=== PATIENT | male | born 1935 | race Caucasian/White ===

== ENCOUNTER 2017-08-29 09:44 | Inpatient (IN) | payer MEDICARE, OTHER ==
[~2017-08-29] VITALS: Ht 182.9 cm; Wt 91.0 kg
[~2017-08-29 09:44] MED LIST: AMLO2.5T2 PO; ASPI-611 PO; ATOR20TA PO; DULO-31 PO; FERR134T2 PO; FLO0.4C PO; LISI-644 PO; METF500T PO; METO50TA7 PO; NIA500ERT PO; NITR0.4T48 SL; PHEN30SP5 NS; [UNRECOGNIZED DRUG - REMARK] PO
[2017-08-29] MEDS ORDERED: normal saline 1000ml 1,000 ML IV ONE ×2 (10:19→13:50)
[2017-08-29 10:46] LABS: PARTIAL THROMBOPLASTIN TIME 29 SECONDS (22-32); PROTHROMBIN TIME 10.6 SECONDS (9.0-12.0)
[2017-08-29 10:51] LABS: BASOPHILS % (AUTO) 0.3 % (0-1); EOSINOPHILS % (AUTO) 0 % (0-6); HEMATOCRIT 32.3 % (42.0-52.0); HEMOGLOBIN 11.1 g/dl (14.0-17.9); LYMPHOCYTES # (AUTO) 0.6 X10'3 (1.1-4.8); LYMPHOCYTES % (AUTO) 9.9 % (21-51); MEAN CORPUSCULAR HEMOGLOBIN 29.7 PG (27.0-31.0); MEAN CORPUSCULAR HGB CONC 34.4 % (33.0-36.5); MEAN CORPUSCULAR VOLUME 86.3 FL (78-98); MEAN PLATELET VOLUME 9.2 FL (7.4-10.4); MONOCYTES # (AUTO) 0.3 X10'3 (0-0.9); MONOCYTES % (AUTO) 4.2 % (2-12); NEUTROPHILS # (AUTO) 5.2 X10'3 (1.8-7.7); NEUTROPHILS % (AUTO) 85.6 % (42-75); PLATELET COUNT 107 X10'3 (140-440); RED BLOOD COUNT 3.74 X10'6 (4.70-6.10); RED CELL DISTRIBUTION WIDTH 15.1 % (11.5-14.5); WHITE BLOOD COUNT 6.1 X10'3 (4.5-11.0)
[2017-08-29 10:54] LABS: ALANINE AMINOTRANSFERASE 14 U/L (12-78); ALBUMIN/GLOBULIN RATIO 0.8 (1.1-1.5); ALKALINE PHOSPHATASE 88 IU/L (46-116); ANION GAP 15 (8-16); ASPARTATE AMINO TRANSFERASE 15 U/L (10-37); BILIRUBIN,TOTAL 0.6 MG/DL (0.1-1.0); BLOOD UREA NITROGEN 53 MG/DL (7-18); BUN/CREATININE RATIO 16.8 (5.4-32.0); CALCIUM 9.2 MG/DL (8.5-10.1); CHLORIDE 103 MMOL/L (99-107); CREATININE 3.16 MG/DL (0.60-1.10); GLUCOSE 165 MG/DL (70-104); POTASSIUM 3.4 MMOL/L (3.5-5.1); SODIUM 138 MMOL/L (135-145); TOTAL CARBON DIOXIDE 20.1 MMOL/L (24-32); TOTAL PROTEIN 6.6 G/DL (6.4-8.2); eGFR 19 ML/MIN
[2017-08-29 11:13] LABS: ACETAMINOPHEN < 2.0 UG/ML (10-30)
[2017-08-29 11:34] LABS: CLARITY,URINE CLEAR (Clear); COLOR,URINE YELLOW (Yellow); GLUCOSE, URINE NEGATIVE (Neg); KETONES,URINE 15 mg/dl (Neg); LEUKOCYTE ESTERASE ,URINE NEGATIVE (Neg); NITRITES, URINE NEGATIVE (Neg); OCCULT BLOOD,URINE SMALL (Neg); PH,URINE 5.5 (4.8-8.0); PROTEIN,URINE 30 mg/dl (Neg)
[2017-08-29 11:38] LABS: UA COLLECTION TYPE FOLEY CATH
[2017-08-29 11:48] LABS: URINE AMPHETAMINE SCREEN NEGATIVE (Neg); URINE BARBITUATE SCREEN NEGATIVE (Neg); URINE BENZODIAZEPINES SCREEN NEGATIVE (Neg); URINE CANNABINOID SCREEN NEGATIVE (Neg); URINE COCAINE SCREEN NEGATIVE (Neg); URINE METHADONE SCREEN NEGATIVE (Neg); URINE OPIATE SCREEN NEGATIVE (Neg); URINE PHENCYCLIDINE SCREEN NEGATIVE (Neg)
[2017-08-29 11:52] LABS: BACTERIA,URINE NONE SEEN /HPF (Neg); MUCUS STRANDS FEW /LPF (Neg); SQUAMOUS EPITHELIAL CELL,UR FEW /LPF (FEW); WBC,URINE 0-4 /HPF (0-4)
[2017-08-29] MEDS ORDERED: normal saline 1000ML IV soln IVB ONE (12:10)
[2017-08-29] MEDS ORDERED: glucagon, human recombinant 1mg kit SUBCUT PRN (13:35)
[2017-08-29] MEDS ORDERED: ondansetron/PF 4mg/2ml inj IV PRN (13:35)
[2017-08-29] MEDS ORDERED: magnesium hydroxide 30ml (MOM) UD suspension PO PRN (13:35)
[2017-08-29] MEDS ORDERED: MESSAGE TO PHARMACY PO ONE (13:35)
[2017-08-29] MEDS ORDERED: dextrose ORAL solution 15 GM/59 ML bottle PO PRN ×2 (13:35)
[2017-08-29] MEDS ORDERED: insulin Lispro (HumaLOG) vial - multi-dose SQ SCH (13:35)
[2017-08-29] MEDS ORDERED: acetaminophen 325mg tablet PO PRN (13:35)
[2017-08-29] MEDS ORDERED: dextrose 50%-water 50ml dispensing syringe IV PRN ×3 (13:35→23:35)
[2017-08-29 13:57] LABS: PHOSPHORUS 3.4 MG/DL (2.3-4.5)
[2017-08-29 13:59] LABS: HEMOGLOBIN A1C 5.3 % (4.5-6.2)
[2017-08-29] MEDS: normal saline 1000ml 1,000 ML IV SCH ×2 (14:16→21:55)
[2017-08-29 14:43] LABS: ANION GAP 17 (8-16); BLOOD UREA NITROGEN 52 MG/DL (7-18); BUN/CREATININE RATIO 17.4 (5.4-32.0); CALCIUM 8.8 MG/DL (8.5-10.1); CHLORIDE 105 MMOL/L (99-107); CREATININE 2.98 MG/DL (0.60-1.10); GLUCOSE 138 MG/DL (70-104); PHOSPHORUS 2.9 MG/DL (2.3-4.5); POTASSIUM 3.7 MMOL/L (3.5-5.1); SODIUM 140 MMOL/L (135-145); eGFR 20 ML/MIN
[2017-08-29 15:50] VITALS: BP 158/99
[2017-08-29] MEDS: piperacillin-tazo 2.25gm/50ml 50 ML IV SCH ×2 (16:32→23:56)
[2017-08-29] MEDS ORDERED: magnesium Cl slow-release 64mg tablet PO PRN (17:35)
[2017-08-29] MEDS ORDERED: magnesium 4gm in 100ml NS 100 ML IV PRN (17:35)
[2017-08-29] MEDS ORDERED: potassium Cl 20 mEq SR tablet PO PRN (17:35)
[2017-08-29] MEDS ORDERED: potassium Cl 40MEQ/NS 500ml 500 ML IV PRN ×2 (17:35)
[2017-08-29] MEDS ORDERED: magnesium 2GM in 50ml NS 50 ML IV PRN (17:35)
[2017-08-29 19:00] VITALS: BP 133/75
[2017-08-29 19:43] LABS: % IRON SATURATION 8 % (11-46); IRON 17 UG/DL (53-167); TOTAL IRON BINDING CAPACITY 222 UG/DL (259-388)
[2017-08-29] MEDS ORDERED: doxycycline inj 100 MG in normal saline 100ml IV soln 100 ML IV SCH (20:00)
[2017-08-29] MEDS: insulin glargine (Lantus) pen - multi-dose SQ SCH (21:00)
[2017-08-29] MEDS: sodium bicarbonate 650mg tablet PO SCH (21:02)
[2017-08-29] MEDS: heparin, porcine 5000 units/ml vial SQ SCH (21:02)
[2017-08-29] MEDS: nystatin 15 GM powder TP SCH (21:23)
[2017-08-29 23:00] VITALS: BP 134/64
[2017-08-29] MEDS ORDERED: haloperidol 5mg tablet PO PRN (23:35)
[2017-08-29] MEDS ORDERED: haloperidol lactate 5mg/ml inj IM PRN (23:35)
[2017-08-29] MEDS ORDERED: LORazepam 2 mg/ml vial IV PRN (23:35)
[2017-08-30 03:00] VITALS: BP 135/63
[2017-08-30 05:53] LABS: BASOPHILS % (AUTO) 0.3 % (0-1); EOSINOPHILS % (AUTO) 0.7 % (0-6); HEMATOCRIT 25.1 % (42.0-52.0); HEMOGLOBIN 8.5 g/dl (14.0-17.9); LYMPHOCYTES # (AUTO) 0.7 X10'3 (1.1-4.8); LYMPHOCYTES % (AUTO) 22.3 % (21-51); MEAN CORPUSCULAR HEMOGLOBIN 29.4 PG (27.0-31.0); MEAN CORPUSCULAR HGB CONC 34.1 % (33.0-36.5); MEAN CORPUSCULAR VOLUME 86.2 FL (78-98); MEAN PLATELET VOLUME 9.1 FL (7.4-10.4); MONOCYTES # (AUTO) 0.2 X10'3 (0-0.9); MONOCYTES % (AUTO) 4.8 % (2-12); NEUTROPHILS # (AUTO) 2.4 X10'3 (1.8-7.7); NEUTROPHILS % (AUTO) 71.9 % (42-75); PLATELET COUNT 61 X10'3 (140-440); RED BLOOD COUNT 2.91 X10'6 (4.70-6.10); RED CELL DISTRIBUTION WIDTH 14.8 % (11.5-14.5); WHITE BLOOD COUNT 3.3 X10'3 (4.5-11.0)
[2017-08-30 06:00] VITALS: BP 141/63
[2017-08-30 06:12] LABS: ANION GAP 14 (8-16); BLOOD UREA NITROGEN 45 MG/DL (7-18); BUN/CREATININE RATIO 19.8 (5.4-32.0); CALCIUM 7.8 MG/DL (8.5-10.1); CHLORIDE 108 MMOL/L (99-107); CREATININE 2.27 MG/DL (0.60-1.10); GLUCOSE 108 MG/DL (70-104); MAGNESIUM 1.6 MG/DL (1.5-2.4); PHOSPHORUS 2.8 MG/DL (2.3-4.5); SODIUM 139 MMOL/L (135-145); TOTAL CARBON DIOXIDE 16.8 MMOL/L (24-32); eGFR 28 ML/MIN
[2017-08-30] MEDS: potassium Cl 20 mEq SR tablet PO PRN ×3 (07:06→18:40)
[2017-08-30] MEDS ORDERED: potassium Cl 40MEQ/NS 500ml 500 ML IV PRN ×2 (07:35)
[2017-08-30] MEDS: duloxetine 30mg CAPSULE.DR PO SCH (07:57)
[2017-08-30] MEDS: atorvastatin 20mg tablet PO SCH (07:57)
[2017-08-30] MEDS: folic acid/vitamin B complex w/vitamin C 0.8mg tablet PO SCH (07:58)
[2017-08-30] MEDS: sodium bicarbonate 650mg tablet PO SCH ×3 (07:58→20:43)
[2017-08-30] MEDS: tamsulosin 0.4mg capsule PO SCH (07:58)
[2017-08-30] MEDS: ferrous sulfate 325mg tablet PO SCH (07:58)
[2017-08-30] MEDS: aspirin 81mg tablet.DR PO SCH (07:59)
[2017-08-30] MEDS ORDERED: [UNRECOGNIZED DRUG - REMARK] PO SCH (08:00)
[2017-08-30] MEDS ORDERED: non-formulary drug (Aspirin (Aspir 81) 1 TABLET) PO SCH (08:00)
[2017-08-30] MEDS ORDERED: non-formulary drug (Atorvastatin Calcium (Lipitor) 1 TABLET) PO SCH (08:00)
[2017-08-30] MEDS: heparin, porcine 5000 units/ml vial SQ SCH ×2 (08:00→20:00)
[2017-08-30] MEDS ORDERED: non-formulary drug (Metoprolol Succinate* (Toprol Xl*) 1 TAB) PO SCH (08:00)
[2017-08-30] MEDS ORDERED: folic acid inj. 2 MG, thiamine inj. 100 MG, MVI, adult No.4 with vit. K 10 ML in dextro... IV SCH ×4 (08:00)
[2017-08-30] MEDS ORDERED: FERROUS SULFATE 134 MG PO SCH (08:00)
[2017-08-30] MEDS: nystatin 15 GM powder TP SCH ×3 (08:01→21:54)
[2017-08-30] MEDS: piperacillin-tazo 2.25gm/50ml 50 ML IV SCH ×3 (08:01→23:49)
[2017-08-30] MEDS: amLODIPine 5mg tablet PO SCH (08:04)
[2017-08-30] MEDS: metoprolol succinate 25mg (24-HOUR) SR. Tablet PO SCH (08:04)
[2017-08-30] MEDS: normal saline 1000ml 1,000 ML IV SCH ×3 (08:09→21:54)
[2017-08-30] MEDS ORDERED: sodium ferric gluc complex inj 25 MG in normal saline 50ml IV soln 48 ML IV ONE (08:45)
[2017-08-30] MEDS ORDERED: NIT5P (10:04)
[2017-08-30] MEDS: sodium ferric gluc complex inj 125 MG in normal saline 100ml IV soln 100 ML IV SCH (10:20)
[2017-08-30 11:00] VITALS: BP 127/55
[2017-08-30 13:44] LABS: ALBUMIN 2.4 G/DL (3.4-5.0); ANION GAP 16 (8-16); BLOOD UREA NITROGEN 41 MG/DL (7-18); BUN/CREATININE RATIO 17.4 (5.4-32.0); CALCIUM 8.2 MG/DL (8.5-10.1); CHLORIDE 104 MMOL/L (99-107); CREATININE 2.36 MG/DL (0.60-1.10); GLUCOSE 135 MG/DL (70-104); SODIUM 136 MMOL/L (135-145); TOTAL CARBON DIOXIDE 16.4 MMOL/L (24-32); eGFR 27 ML/MIN
[2017-08-30 13:47] LABS: POTASSIUM 2.9 MMOL/L (3.5-5.1)
[2017-08-30] MEDS ORDERED: potassium Cl 20 mEq SR tablet PO STA (14:19)
[2017-08-30] MEDS: doxycycline hyclate 100mg tablet.DR PO SCH ×2 (14:27→17:30)
[2017-08-30 15:00] VITALS: BP 129/64
[2017-08-30 19:00] VITALS: BP 115/50
[2017-08-30 19:42] LABS: ALBUMIN 2.1 G/DL (3.4-5.0); ANION GAP 14 (8-16); BLOOD UREA NITROGEN 37 MG/DL (7-18); BUN/CREATININE RATIO 17.7 (5.4-32.0); CALCIUM 7.7 MG/DL (8.5-10.1); CHLORIDE 105 MMOL/L (99-107); CREATININE 2.09 MG/DL (0.60-1.10); GLUCOSE 129 MG/DL (70-104); POTASSIUM 3.3 MMOL/L (3.5-5.1); SODIUM 136 MMOL/L (135-145); TOTAL CARBON DIOXIDE 17.3 MMOL/L (24-32); eGFR 31 ML/MIN
[2017-08-30] MEDS: lactobacillus rhamnosus 10,000 MMU CELLS/CAPSULE PO SCH (20:43)
[2017-08-30] MEDS: insulin glargine (Lantus) pen - multi-dose SQ SCH (21:00)
[2017-08-30 23:00] VITALS: BP 96/50
[2017-08-31 00:30] VITALS: BP 133/75
[2017-08-31 05:49] LABS: BASOPHILS % (AUTO) 0.6 % (0-1); EOSINOPHILS # (AUTO) 0.1 X10'3 (0-0.9); HEMOGLOBIN 8.9 g/dl (14.0-17.9); LYMPHOCYTES # (AUTO) 0.8 X10'3 (1.1-4.8); LYMPHOCYTES % (AUTO) 19.3 % (21-51); MEAN CORPUSCULAR HEMOGLOBIN 29.6 PG (27.0-31.0); MEAN CORPUSCULAR HGB CONC 34.1 % (33.0-36.5); MEAN CORPUSCULAR VOLUME 86.6 FL (78-98); MEAN PLATELET VOLUME 9.3 FL (7.4-10.4); MONOCYTES # (AUTO) 0.2 X10'3 (0-0.9); MONOCYTES % (AUTO) 3.7 % (2-12); NEUTROPHILS # (AUTO) 3.3 X10'3 (1.8-7.7); NEUTROPHILS % (AUTO) 74.4 % (42-75); PLATELET COUNT 70 X10'3 (140-440); WHITE BLOOD COUNT 4.4 X10'3 (4.5-11.0)
[2017-08-31 06:20] LABS: ANION GAP 9 (8-16); BLOOD UREA NITROGEN 33 MG/DL (7-18); BUN/CREATININE RATIO 17.6 (5.4-32.0); CALCIUM 7.7 MG/DL (8.5-10.1); CHLORIDE 105 MMOL/L (99-107); CREATININE 1.87 MG/DL (0.60-1.10); GLUCOSE 117 MG/DL (70-104); MAGNESIUM 1.4 MG/DL (1.5-2.4); PHOSPHORUS 1.6 MG/DL (2.3-4.5); POTASSIUM 4.1 MMOL/L (3.5-5.1); SODIUM 134 MMOL/L (135-145); TOTAL CARBON DIOXIDE 19.7 MMOL/L (24-32); eGFR 35 ML/MIN
[2017-08-31 07:00] VITALS: BP 136/55
[2017-08-31] MEDS: heparin, porcine 5000 units/ml vial SQ SCH ×2 (08:00→21:39)
[2017-08-31] MEDS: normal saline 1000ml 1,000 ML IV SCH (08:08)
[2017-08-31] MEDS: folic acid 1mg tablet PO SCH (08:08)
[2017-08-31] MEDS: multivitamins, therapeutics tablet PO SCH (08:08)
[2017-08-31] MEDS: lactobacillus rhamnosus 10,000 MMU CELLS/CAPSULE PO SCH ×2 (08:08→21:38)
[2017-08-31] MEDS: amLODIPine 5mg tablet PO SCH (08:09)
[2017-08-31] MEDS: tamsulosin 0.4mg capsule PO SCH (08:09)
[2017-08-31] MEDS: duloxetine 30mg CAPSULE.DR PO SCH (08:09)
[2017-08-31] MEDS: ferrous sulfate 325mg tablet PO SCH (08:09)
[2017-08-31] MEDS: doxycycline hyclate 100mg tablet.DR PO SCH ×2 (08:09→16:36)
[2017-08-31] MEDS: metoprolol succinate 25mg (24-HOUR) SR. Tablet PO SCH (08:09)
[2017-08-31] MEDS: atorvastatin 20mg tablet PO SCH (08:09)
[2017-08-31] MEDS: aspirin 81mg tablet.DR PO SCH (08:09)
[2017-08-31] MEDS: thiamine 100mg tablet PO SCH (08:09)
[2017-08-31] MEDS: piperacillin-tazo 2.25gm/50ml 50 ML IV SCH ×2 (08:10→16:36)
[2017-08-31] MEDS: nystatin 15 GM powder TP SCH ×3 (08:10→21:38)
[2017-08-31] MEDS: folic acid/vitamin B complex w/vitamin C 0.8mg tablet PO SCH (08:11)
[2017-08-31] MEDS ORDERED: magnesium 2GM in 50ml NS 50 ML IV ONE (08:15)
[2017-08-31] MEDS ORDERED: sodium phosphate inj. 15 MMOL in dextrose 5%-water 145 ML IV ONE (08:15)
[2017-08-31] MEDS: sodium bicarbonate 650mg tablet PO SCH ×3 (08:32→21:38)
[2017-08-31] MEDS: sodium ferric gluc complex inj 125 MG in normal saline 100ml IV soln 100 ML IV SCH (10:12)
[2017-08-31 11:19] VITALS: BP 109/49
[2017-08-31 19:00] VITALS: BP 118/65
[2017-08-31] MEDS: insulin glargine (Lantus) pen - multi-dose SQ SCH (21:00)
[2017-08-31] MEDS ORDERED: LORazepam 2 mg/ml vial IV PRN (23:35)
[2017-08-31] MEDS ORDERED: LORazepam 1 MG tablet PO PRN (23:35)
[2017-09-01] VITALS: BP_SYST 127; BP_SYST 137; BP_DIAS 62; BP_DIAS 64
[2017-09-01] MEDS: piperacillin-tazo 2.25gm/50ml 50 ML IV SCH ×2 (00:45→08:29)
[2017-09-01] MEDS: normal saline 1000ml 1,000 ML IV SCH ×3 (01:35→15:24)
[2017-09-01 04:39] VITALS: BP 97/55
[2017-09-01 06:06] LABS: BASOPHILS % (AUTO) 0.7 % (0-1); EOSINOPHILS # (AUTO) 0.1 X10'3 (0-0.9); EOSINOPHILS % (AUTO) 2.8 % (0-6); HEMOGLOBIN 8.7 g/dl (14.0-17.9); LYMPHOCYTES # (AUTO) 0.9 X10'3 (1.1-4.8); MEAN CORPUSCULAR HEMOGLOBIN 29.4 PG (27.0-31.0); MEAN CORPUSCULAR HGB CONC 33.5 % (33.0-36.5); MEAN CORPUSCULAR VOLUME 87.7 FL (78-98); MEAN PLATELET VOLUME 9.1 FL (7.4-10.4); MONOCYTES # (AUTO) 0.2 X10'3 (0-0.9); MONOCYTES % (AUTO) 4.6 % (2-12); NEUTROPHILS # (AUTO) 2.3 X10'3 (1.8-7.7); NEUTROPHILS % (AUTO) 65.9 % (42-75); PLATELET COUNT 72 X10'3 (140-440); RED BLOOD COUNT 2.97 X10'6 (4.70-6.10); RED CELL DISTRIBUTION WIDTH 14.9 % (11.5-14.5); WHITE BLOOD COUNT 3.5 X10'3 (4.5-11.0)
[2017-09-01 06:16] LABS: ANION GAP 13 (8-16); BLOOD UREA NITROGEN 23 MG/DL (7-18); BUN/CREATININE RATIO 15.1 (5.4-32.0); CALCIUM 7.7 MG/DL (8.5-10.1); CHLORIDE 102 MMOL/L (99-107); CREATININE 1.52 MG/DL (0.60-1.10); GLUCOSE 117 MG/DL (70-104); MAGNESIUM 1.4 MG/DL (1.5-2.4); PHOSPHORUS 2.6 MG/DL (2.3-4.5); POTASSIUM 3.8 MMOL/L (3.5-5.1); SODIUM 134 MMOL/L (135-145); TOTAL CARBON DIOXIDE 19.2 MMOL/L (24-32); eGFR 44 ML/MIN
[2017-09-01 07:08] VITALS: BP 149/63
[2017-09-01] MEDS: heparin, porcine 5000 units/ml vial SQ SCH ×2 (08:00→21:21)
[2017-09-01] MEDS: thiamine 100mg tablet PO SCH (08:29)
[2017-09-01] MEDS: doxycycline hyclate 100mg tablet.DR PO SCH ×2 (08:29→17:54)
[2017-09-01] MEDS: lactobacillus rhamnosus 10,000 MMU CELLS/CAPSULE PO SCH ×2 (08:29→21:19)
[2017-09-01] MEDS: folic acid 1mg tablet PO SCH (08:30)
[2017-09-01] MEDS: amLODIPine 5mg tablet PO SCH (08:30)
[2017-09-01] MEDS: aspirin 81mg tablet.DR PO SCH (08:30)
[2017-09-01] MEDS: metoprolol succinate 25mg (24-HOUR) SR. Tablet PO SCH (08:30)
[2017-09-01] MEDS: ferrous sulfate 325mg tablet PO SCH (08:30)
[2017-09-01] MEDS: folic acid/vitamin B complex w/vitamin C 0.8mg tablet PO SCH (08:30)
[2017-09-01] MEDS: tamsulosin 0.4mg capsule PO SCH (08:30)
[2017-09-01] MEDS: multivitamins, therapeutics tablet PO SCH (08:30)
[2017-09-01] MEDS: sodium bicarbonate 650mg tablet PO SCH ×4 (08:30→21:21)
[2017-09-01] MEDS: atorvastatin 20mg tablet PO SCH (08:30)
[2017-09-01] MEDS: duloxetine 30mg CAPSULE.DR PO SCH (08:31)
[2017-09-01] MEDS: nystatin 15 GM powder TP SCH ×3 (08:40→21:21)
[2017-09-01 10:01] VITALS: BP_SYST 101; BP_SYST 130; BP_SYST 91; BP_DIAS 33; BP_DIAS 43; BP_DIAS 67
[2017-09-01] MEDS: sodium ferric gluc complex inj 125 MG in normal saline 100ml IV soln 100 ML IV SCH (10:08)
[2017-09-01 12:36] VITALS: BP 136/79
[2017-09-01 19:00] VITALS: BP 139/73
[2017-09-01] MEDS: insulin glargine (Lantus) pen - multi-dose SQ SCH (21:00)
[2017-09-02] VITALS: BP 127/64
[2017-09-02] MEDS: normal saline 1000ml 1,000 ML IV SCH ×2 (02:55→17:29)
[2017-09-02 05:42] LABS: BASOPHILS % (AUTO) 0.5 % (0-1); EOSINOPHILS # (AUTO) 0.1 X10'3 (0-0.9); HEMATOCRIT 24.8 % (42.0-52.0); HEMOGLOBIN 8.6 g/dl (14.0-17.9); LYMPHOCYTES % (AUTO) 26.1 % (21-51); MEAN CORPUSCULAR HEMOGLOBIN 29.4 PG (27.0-31.0); MEAN CORPUSCULAR HGB CONC 34.5 % (33.0-36.5); MEAN CORPUSCULAR VOLUME 85.4 FL (78-98); MEAN PLATELET VOLUME 8.6 FL (7.4-10.4); MONOCYTES # (AUTO) 0.3 X10'3 (0-0.9); MONOCYTES % (AUTO) 7.6 % (2-12); NEUTROPHILS # (AUTO) 2.5 X10'3 (1.8-7.7); NEUTROPHILS % (AUTO) 62.8 % (42-75); PLATELET COUNT 79 X10'3 (140-440); RED BLOOD COUNT 2.91 X10'6 (4.70-6.10); RED CELL DISTRIBUTION WIDTH 15.1 % (11.5-14.5)
[2017-09-02 05:51] LABS: ALANINE AMINOTRANSFERASE 14 U/L (12-78); ALBUMIN/GLOBULIN RATIO 0.7 (1.1-1.5); ALKALINE PHOSPHATASE 71 IU/L (46-116); ANION GAP 10 (8-16); ASPARTATE AMINO TRANSFERASE 14 U/L (10-37); BILIRUBIN,TOTAL 0.4 MG/DL (0.1-1.0); BLOOD UREA NITROGEN 19 MG/DL (7-18); BUN/CREATININE RATIO 14.7 (5.4-32.0); CALCIUM 7.7 MG/DL (8.5-10.1); CHLORIDE 101 MMOL/L (99-107); CREATININE 1.29 MG/DL (0.60-1.10); GLUCOSE 98 MG/DL (70-104); MAGNESIUM 1.2 MG/DL (1.5-2.4); PHOSPHORUS 2.3 MG/DL (2.3-4.5); POTASSIUM 3.2 MMOL/L (3.5-5.1); SODIUM 130 MMOL/L (135-145); TOTAL CARBON DIOXIDE 19.5 MMOL/L (24-32); TOTAL PROTEIN 4.9 G/DL (6.4-8.2); eGFR 53 ML/MIN
[2017-09-02 08:00] VITALS: BP_SYST 131; BP_SYST 132; BP_SYST 136; BP_SYST 142; BP_DIAS 62; BP_DIAS 67; BP_DIAS 73
[2017-09-02] MEDS: heparin, porcine 5000 units/ml vial SQ SCH ×2 (08:00→20:00)
[2017-09-02] MEDS: sodium bicarbonate 650mg tablet PO SCH ×3 (08:56→21:47)
[2017-09-02] MEDS: amLODIPine 5mg tablet PO SCH (08:56)
[2017-09-02] MEDS: folic acid/vitamin B complex w/vitamin C 0.8mg tablet PO SCH (08:56)
[2017-09-02] MEDS: aspirin 81mg tablet.DR PO SCH (08:57)
[2017-09-02] MEDS: atorvastatin 20mg tablet PO SCH (08:58)
[2017-09-02] MEDS: folic acid 1mg tablet PO SCH (08:59)
[2017-09-02] MEDS: metoprolol succinate 25mg (24-HOUR) SR. Tablet PO SCH (08:59)
[2017-09-02] MEDS: multivitamins, therapeutics tablet PO SCH (08:59)
[2017-09-02] MEDS: lactobacillus rhamnosus 10,000 MMU CELLS/CAPSULE PO SCH ×2 (08:59→21:47)
[2017-09-02] MEDS: ferrous sulfate 325mg tablet PO SCH (08:59)
[2017-09-02] MEDS: tamsulosin 0.4mg capsule PO SCH (09:08)
[2017-09-02] MEDS: thiamine 100mg tablet PO SCH (09:08)
[2017-09-02] MEDS: duloxetine 30mg CAPSULE.DR PO SCH (09:08)
[2017-09-02] MEDS: nystatin 15 GM powder TP SCH ×3 (09:08→21:48)
[2017-09-02] MEDS: sodium ferric gluc complex inj 125 MG in normal saline 100ml IV soln 100 ML IV SCH (09:14)
[2017-09-02] MEDS: doxycycline hyclate 100mg tablet.DR PO SCH ×2 (09:14→17:29)
[2017-09-02 11:00] VITALS: BP 117/66
[2017-09-02] MEDS ORDERED: magnesium Cl slow-release 64mg tablet PO PRN (11:10)
[2017-09-02] MEDS ORDERED: magnesium 4gm in 100ml NS 100 ML IV PRN (11:10)
[2017-09-02] MEDS ORDERED: magnesium 2GM in 50ml NS 50 ML IV PRN (11:10)
[2017-09-02] MEDS ORDERED: potassium Cl 40MEQ/NS 500ml 500 ML IV PRN ×2 (11:10)
[2017-09-02] MEDS ORDERED: potassium Cl 20 mEq SR tablet PO PRN (11:10)
[2017-09-02] MEDS: potassium Cl 20 mEq SR tablet PO PRN ×3 (12:00→21:47)
[2017-09-02 18:00] VITALS: BP 135/70
[2017-09-02 20:00] VITALS: BP_SYST 135; BP_SYST 146; BP_DIAS 70
[2017-09-02] MEDS: insulin glargine (Lantus) pen - multi-dose SQ SCH (21:00)
[2017-09-02] MEDS ORDERED: LORazepam 1 MG tablet PO PRN (23:35)
[2017-09-02] MEDS ORDERED: LORazepam 2 mg/ml vial IV PRN (23:35)
[2017-09-03] VITALS (7 sets, daily range): BP systolic 73–135; BP diastolic 40–74
[2017-09-03 06:09] LABS: BASOPHILS % (AUTO) 0.4 % (0-1); EOSINOPHILS # (AUTO) 0.1 X10'3 (0-0.9); EOSINOPHILS % (AUTO) 2.7 % (0-6); LYMPHOCYTES # (AUTO) 1.1 X10'3 (1.1-4.8); LYMPHOCYTES % (AUTO) 26.4 % (21-51); MEAN CORPUSCULAR HEMOGLOBIN 29.4 PG (27.0-31.0); MEAN CORPUSCULAR HGB CONC 34.5 % (33.0-36.5); MEAN CORPUSCULAR VOLUME 85.3 FL (78-98); MONOCYTES # (AUTO) 0.4 X10'3 (0-0.9); MONOCYTES % (AUTO) 8.6 % (2-12); NEUTROPHILS # (AUTO) 2.6 X10'3 (1.8-7.7); NEUTROPHILS % (AUTO) 61.9 % (42-75); PLATELET COUNT 87 X10'3 (140-440); RED BLOOD COUNT 3.05 X10'6 (4.70-6.10); RED CELL DISTRIBUTION WIDTH 14.6 % (11.5-14.5); WHITE BLOOD COUNT 4.2 X10'3 (4.5-11.0)
[2017-09-03 06:31] LABS: ALANINE AMINOTRANSFERASE 20 U/L (12-78); ALBUMIN 2.1 G/DL (3.4-5.0); ALBUMIN/GLOBULIN RATIO 0.7 (1.1-1.5); ALKALINE PHOSPHATASE 71 IU/L (46-116); ANION GAP 8 (8-16); ASPARTATE AMINO TRANSFERASE 23 U/L (10-37); BILIRUBIN,TOTAL 0.4 MG/DL (0.1-1.0); BLOOD UREA NITROGEN 19 MG/DL (7-18); BUN/CREATININE RATIO 14.7 (5.4-32.0); CALCIUM 7.7 MG/DL (8.5-10.1); CHLORIDE 102 MMOL/L (99-107); CREATININE 1.29 MG/DL (0.60-1.10); GLUCOSE 97 MG/DL (70-104); PHOSPHORUS 2.2 MG/DL (2.3-4.5); POTASSIUM 3.9 MMOL/L (3.5-5.1); SODIUM 130 MMOL/L (135-145); TOTAL CARBON DIOXIDE 19.9 MMOL/L (24-32); eGFR 53 ML/MIN
[2017-09-03] MEDS: folic acid 1mg tablet PO SCH (07:17)
[2017-09-03] MEDS: lactobacillus rhamnosus 10,000 MMU CELLS/CAPSULE PO SCH ×2 (07:17→20:33)
[2017-09-03] MEDS: atorvastatin 20mg tablet PO SCH (07:17)
[2017-09-03] MEDS: aspirin 81mg tablet.DR PO SCH (07:18)
[2017-09-03] MEDS: amLODIPine 5mg tablet PO SCH (07:18)
[2017-09-03] MEDS: ferrous sulfate 325mg tablet PO SCH (07:18)
[2017-09-03] MEDS: metoprolol succinate 25mg (24-HOUR) SR. Tablet PO SCH (07:19)
[2017-09-03] MEDS: multivitamins, therapeutics tablet PO SCH (07:19)
[2017-09-03] MEDS: duloxetine 30mg CAPSULE.DR PO SCH (07:19)
[2017-09-03] MEDS: doxycycline hyclate 100mg tablet.DR PO SCH ×2 (07:20→17:26)
[2017-09-03] MEDS: tamsulosin 0.4mg capsule PO SCH (07:20)
[2017-09-03] MEDS: thiamine 100mg tablet PO SCH (07:20)
[2017-09-03] MEDS: folic acid/vitamin B complex w/vitamin C 0.8mg tablet PO SCH (07:20)
[2017-09-03] MEDS: sodium bicarbonate 650mg tablet PO SCH ×3 (07:20→20:33)
[2017-09-03] MEDS: heparin, porcine 5000 units/ml vial SQ SCH ×2 (07:33→20:00)
[2017-09-03] MEDS: nystatin 15 GM powder TP SCH ×3 (09:28→20:33)
[2017-09-03] MEDS: sodium ferric gluc complex inj 125 MG in normal saline 100ml IV soln 100 ML IV SCH (10:42)
[2017-09-03] MEDS: normal saline 1000ml 1,000 ML IV SCH ×3 (10:43→20:57)
[2017-09-03] MEDS ORDERED: potassium Cl 20 mEq SR tablet PO ONE (12:25)
[2017-09-03] MEDS: insulin glargine (Lantus) pen - multi-dose SQ SCH (21:00)
[2017-09-04] VITALS: BP 128/65
[2017-09-04 05:32] LABS: BASOPHILS % (AUTO) 0.5 % (0-1); EOSINOPHILS # (AUTO) 0.1 X10'3 (0-0.9); EOSINOPHILS % (AUTO) 2.8 % (0-6); HEMATOCRIT 25.8 % (42.0-52.0); LYMPHOCYTES # (AUTO) 1.2 X10'3 (1.1-4.8); LYMPHOCYTES % (AUTO) 25.8 % (21-51); MEAN CORPUSCULAR HEMOGLOBIN 29.8 PG (27.0-31.0); MEAN CORPUSCULAR HGB CONC 34.9 % (33.0-36.5); MEAN CORPUSCULAR VOLUME 85.5 FL (78-98); MEAN PLATELET VOLUME 8.4 FL (7.4-10.4); MONOCYTES # (AUTO) 0.5 X10'3 (0-0.9); NEUTROPHILS # (AUTO) 2.7 X10'3 (1.8-7.7); NEUTROPHILS % (AUTO) 60.9 % (42-75); PLATELET COUNT 99 X10'3 (140-440); RED BLOOD COUNT 3.02 X10'6 (4.70-6.10); RED CELL DISTRIBUTION WIDTH 15.2 % (11.5-14.5); WHITE BLOOD COUNT 4.5 X10'3 (4.5-11.0)
[2017-09-04 05:56] LABS: ALANINE AMINOTRANSFERASE 24 U/L (12-78); ALBUMIN 2.3 G/DL (3.4-5.0); ALBUMIN/GLOBULIN RATIO 0.8 (1.1-1.5); ALKALINE PHOSPHATASE 79 IU/L (46-116); ANION GAP 9 (8-16); ASPARTATE AMINO TRANSFERASE 25 U/L (10-37); BILIRUBIN,TOTAL 0.4 MG/DL (0.1-1.0); BLOOD UREA NITROGEN 21 MG/DL (7-18); BUN/CREATININE RATIO 16.8 (5.4-32.0); CALCIUM 8.1 MG/DL (8.5-10.1); CHLORIDE 100 MMOL/L (99-107); CREATININE 1.25 MG/DL (0.60-1.10); GLUCOSE 102 MG/DL (70-104); MAGNESIUM 2.1 MG/DL (1.5-2.4); PHOSPHORUS 2.2 MG/DL (2.3-4.5); POTASSIUM 3.8 MMOL/L (3.5-5.1); SODIUM 128 MMOL/L (135-145); TOTAL CARBON DIOXIDE 19.4 MMOL/L (24-32); TOTAL PROTEIN 5.3 G/DL (6.4-8.2); eGFR 55 ML/MIN
[2017-09-04 07:00] VITALS: BP 152/67
[2017-09-04 08:00] VITALS: BP_SYST 107; BP_SYST 125; BP_SYST 86; BP_DIAS 54; BP_DIAS 63; BP_DIAS 65
[2017-09-04] MEDS: heparin, porcine 5000 units/ml vial SQ SCH ×2 (08:00→19:46)
[2017-09-04] MEDS: nystatin 15 GM powder TP SCH ×3 (08:39→20:41)
[2017-09-04] MEDS: multivitamins, therapeutics tablet PO SCH (08:39)
[2017-09-04] MEDS: duloxetine 30mg CAPSULE.DR PO SCH (08:39)
[2017-09-04] MEDS: aspirin 81mg tablet.DR PO SCH (08:39)
[2017-09-04] MEDS: tamsulosin 0.4mg capsule PO SCH (08:39)
[2017-09-04] MEDS: folic acid 1mg tablet PO SCH (08:39)
[2017-09-04] MEDS: thiamine 100mg tablet PO SCH (08:39)
[2017-09-04] MEDS: atorvastatin 20mg tablet PO SCH (08:39)
[2017-09-04] MEDS: lactobacillus rhamnosus 10,000 MMU CELLS/CAPSULE PO SCH ×2 (08:39→19:49)
[2017-09-04] MEDS: sodium bicarbonate 650mg tablet PO SCH ×3 (08:40→20:39)
[2017-09-04] MEDS: folic acid/vitamin B complex w/vitamin C 0.8mg tablet PO SCH (08:40)
[2017-09-04] MEDS: doxycycline hyclate 100mg tablet.DR PO SCH ×2 (08:40→17:30)
[2017-09-04] MEDS: ferrous sulfate 325mg tablet PO SCH (08:40)
[2017-09-04] MEDS: metoprolol succinate 25mg (24-HOUR) SR. Tablet PO SCH (08:40)
[2017-09-04] MEDS: sodium ferric gluc complex inj 125 MG in normal saline 100ml IV soln 100 ML IV SCH (08:49)
[2017-09-04 12:00] VITALS: BP 154/76
[2017-09-04] MEDS: fludrocortisone acetate 0.1mg tablet PO SCH (12:28)
[2017-09-04] MEDS: sodium chloride 1gm tablet PO SCH ×3 (12:28→20:39)
[2017-09-04 19:00] VITALS: BP 136/63
[2017-09-04] MEDS: insulin glargine (Lantus) pen - multi-dose SQ SCH (20:39)
[2017-09-05] VITALS: BP 153/68
[2017-09-05 04:48] LABS: BASOPHILS % (AUTO) 0.4 % (0-1); EOSINOPHILS # (AUTO) 0.2 X10'3 (0-0.9); EOSINOPHILS % (AUTO) 4.2 % (0-6); HEMATOCRIT 27.8 % (42.0-52.0); HEMOGLOBIN 9.4 g/dl (14.0-17.9); LYMPHOCYTES # (AUTO) 0.9 X10'3 (1.1-4.8); LYMPHOCYTES % (AUTO) 20.6 % (21-51); MEAN CORPUSCULAR HEMOGLOBIN 29.6 PG (27.0-31.0); MEAN CORPUSCULAR VOLUME 87.1 FL (78-98); MEAN PLATELET VOLUME 8.5 FL (7.4-10.4); MONOCYTES # (AUTO) 0.4 X10'3 (0-0.9); MONOCYTES % (AUTO) 9.2 % (2-12); NEUTROPHILS # (AUTO) 2.8 X10'3 (1.8-7.7); NEUTROPHILS % (AUTO) 65.6 % (42-75); PLATELET COUNT 128 X10'3 (140-440); RED BLOOD COUNT 3.19 X10'6 (4.70-6.10); RED CELL DISTRIBUTION WIDTH 15.3 % (11.5-14.5); WHITE BLOOD COUNT 4.2 X10'3 (4.5-11.0)
[2017-09-05 05:42] LABS: ALBUMIN 2.5 G/DL (3.4-5.0); ALBUMIN/GLOBULIN RATIO 0.8 (1.1-1.5); ANION GAP 14 (8-16); ASPARTATE AMINO TRANSFERASE 24 U/L (10-37); BILIRUBIN,TOTAL 0.4 MG/DL (0.1-1.0); BLOOD UREA NITROGEN 20 MG/DL (7-18); BUN/CREATININE RATIO 16.1 (5.4-32.0); CALCIUM 8.6 MG/DL (8.5-10.1); CHLORIDE 100 MMOL/L (99-107); CREATININE 1.24 MG/DL (0.60-1.10); GLUCOSE 107 MG/DL (70-104); MAGNESIUM 1.8 MG/DL (1.5-2.4); PHOSPHORUS 3.1 MG/DL (2.3-4.5); POTASSIUM 3.2 MMOL/L (3.5-5.1); SODIUM 133 MMOL/L (135-145); TOTAL PROTEIN 5.8 G/DL (6.4-8.2); eGFR 56 ML/MIN
[2017-09-05 05:43] LABS: ALANINE AMINOTRANSFERASE 29 U/L (12-78); ALKALINE PHOSPHATASE 79 IU/L (46-116)
[2017-09-05 07:00] VITALS: BP 151/70
[2017-09-05] MEDS: tamsulosin 0.4mg capsule PO SCH (07:12)
[2017-09-05] MEDS: ferrous sulfate 325mg tablet PO SCH (07:12)
[2017-09-05] MEDS: multivitamins, therapeutics tablet PO SCH (07:12)
[2017-09-05] MEDS: sodium bicarbonate 650mg tablet PO SCH ×3 (07:12→20:40)
[2017-09-05] MEDS: atorvastatin 20mg tablet PO SCH (07:13)
[2017-09-05] MEDS: folic acid/vitamin B complex w/vitamin C 0.8mg tablet PO SCH (07:13)
[2017-09-05] MEDS: doxycycline hyclate 100mg tablet.DR PO SCH ×2 (07:13→17:31)
[2017-09-05] MEDS: duloxetine 30mg CAPSULE.DR PO SCH (07:13)
[2017-09-05] MEDS: lactobacillus rhamnosus 10,000 MMU CELLS/CAPSULE PO SCH ×2 (07:13→20:39)
[2017-09-05] MEDS: aspirin 81mg tablet.DR PO SCH (07:13)
[2017-09-05] MEDS: thiamine 100mg tablet PO SCH (07:13)
[2017-09-05] MEDS: sodium chloride 1gm tablet PO SCH (07:13)
[2017-09-05] MEDS: heparin, porcine 5000 units/ml vial SQ SCH ×2 (07:14→20:40)
[2017-09-05] MEDS: folic acid 1mg tablet PO SCH (07:14)
[2017-09-05] MEDS: metoprolol succinate 25mg (24-HOUR) SR. Tablet PO SCH (07:14)
[2017-09-05] MEDS: nystatin 15 GM powder TP SCH ×3 (07:15→20:59)
[2017-09-05] MEDS: fludrocortisone acetate 0.1mg tablet PO SCH (07:21)
[2017-09-05] MEDS: potassium Cl 20 mEq SR tablet PO PRN ×3 (08:21→17:31)
[2017-09-05] MEDS: sodium ferric gluc complex inj 125 MG in normal saline 100ml IV soln 100 ML IV SCH (09:08)
[2017-09-05 11:42] VITALS: BP 125/61
[2017-09-05] MEDS ORDERED: potassium Cl 40MEQ/NS 500ml 500 ML IV PRN ×2 (12:25)
[2017-09-05] MEDS ORDERED: magnesium 2GM in 50ml NS 50 ML IV PRN (12:25)
[2017-09-05] MEDS ORDERED: potassium Cl 20 mEq SR tablet PO PRN (12:25)
[2017-09-05] MEDS ORDERED: magnesium 4gm in 100ml NS 100 ML IV PRN (12:25)
[2017-09-05] MEDS ORDERED: magnesium Cl slow-release 64mg tablet PO PRN (12:25)
[2017-09-05 19:00] VITALS: BP 151/72
[2017-09-05] MEDS: insulin glargine (Lantus) pen - multi-dose SQ SCH (21:00)
[2017-09-06] VITALS: BP 151/72
[2017-09-06 04:49] LABS: BASOPHILS # (AUTO) 0.1 X10'3 (0-0.2); BASOPHILS % (AUTO) 1.6 % (0-1); EOSINOPHILS # (AUTO) 0.1 X10'3 (0-0.9); EOSINOPHILS % (AUTO) 3.4 % (0-6); HEMATOCRIT 27.8 % (42.0-52.0); HEMOGLOBIN 9.6 g/dl (14.0-17.9); LYMPHOCYTES # (AUTO) 1.2 X10'3 (1.1-4.8); LYMPHOCYTES % (AUTO) 27.6 % (21-51); MEAN CORPUSCULAR HEMOGLOBIN 30.1 PG (27.0-31.0); MEAN CORPUSCULAR HGB CONC 34.5 % (33.0-36.5); MEAN CORPUSCULAR VOLUME 87.3 FL (78-98); MEAN PLATELET VOLUME 8.1 FL (7.4-10.4); MONOCYTES # (AUTO) 0.4 X10'3 (0-0.9); MONOCYTES % (AUTO) 9.6 % (2-12); NEUTROPHILS # (AUTO) 2.4 X10'3 (1.8-7.7); NEUTROPHILS % (AUTO) 57.8 % (42-75); PLATELET COUNT 144 X10'3 (140-440); RED BLOOD COUNT 3.19 X10'6 (4.70-6.10); RED CELL DISTRIBUTION WIDTH 15.5 % (11.5-14.5); WHITE BLOOD COUNT 4.2 X10'3 (4.5-11.0)
[2017-09-06 05:06] LABS: ALANINE AMINOTRANSFERASE 27 U/L (12-78); ALBUMIN 2.5 G/DL (3.4-5.0); ALBUMIN/GLOBULIN RATIO 0.7 (1.1-1.5); ALKALINE PHOSPHATASE 83 IU/L (46-116); ANION GAP 12 (8-16); ASPARTATE AMINO TRANSFERASE 23 U/L (10-37); BILIRUBIN,TOTAL 0.5 MG/DL (0.1-1.0); BLOOD UREA NITROGEN 18 MG/DL (7-18); BUN/CREATININE RATIO 14.6 (5.4-32.0); CALCIUM 8.9 MG/DL (8.5-10.1); CHLORIDE 104 MMOL/L (99-107); CREATININE 1.23 MG/DL (0.60-1.10); GLUCOSE 98 MG/DL (70-104); MAGNESIUM 2.1 MG/DL (1.5-2.4); PHOSPHORUS 3.4 MG/DL (2.3-4.5); POTASSIUM 3.8 MMOL/L (3.5-5.1); SODIUM 134 MMOL/L (135-145); TOTAL CARBON DIOXIDE 17.7 MMOL/L (24-32); TOTAL PROTEIN 5.9 G/DL (6.4-8.2); eGFR 56 ML/MIN
[2017-09-06 07:37] VITALS: BP 154/69
[2017-09-06] MEDS: sodium ferric gluc complex inj 125 MG in normal saline 100ml IV soln 100 ML IV SCH (08:23)
[2017-09-06] MEDS: lactobacillus rhamnosus 10,000 MMU CELLS/CAPSULE PO SCH ×2 (08:24→20:54)
[2017-09-06] MEDS: thiamine 100mg tablet PO SCH (08:24)
[2017-09-06] MEDS: folic acid/vitamin B complex w/vitamin C 0.8mg tablet PO SCH (08:24)
[2017-09-06] MEDS: fludrocortisone acetate 0.1mg tablet PO SCH (08:24)
[2017-09-06] MEDS: sodium bicarbonate 650mg tablet PO SCH ×3 (08:24→20:54)
[2017-09-06] MEDS: tamsulosin 0.4mg capsule PO SCH (08:24)
[2017-09-06] MEDS: doxycycline hyclate 100mg tablet.DR PO SCH ×2 (08:24→18:13)
[2017-09-06] MEDS: aspirin 81mg tablet.DR PO SCH (08:25)
[2017-09-06] MEDS: metoprolol succinate 25mg (24-HOUR) SR. Tablet PO SCH (08:25)
[2017-09-06] MEDS: folic acid 1mg tablet PO SCH (08:25)
[2017-09-06] MEDS: atorvastatin 20mg tablet PO SCH (08:25)
[2017-09-06] MEDS: multivitamins, therapeutics tablet PO SCH (08:25)
[2017-09-06] MEDS: ferrous sulfate 325mg tablet PO SCH (08:25)
[2017-09-06] MEDS: duloxetine 30mg CAPSULE.DR PO SCH (08:25)
[2017-09-06] MEDS: heparin, porcine 5000 units/ml vial SQ SCH ×2 (08:26→20:55)
[2017-09-06] MEDS: nystatin 15 GM powder TP SCH ×3 (08:26→21:09)
[2017-09-06 12:20] VITALS: BP 103/54
[2017-09-06 20:00] VITALS: BP 129/60
[2017-09-06] MEDS: insulin glargine (Lantus) pen - multi-dose SQ SCH (21:00)
[2017-09-07] VITALS: BP 167/59
[2017-09-07 07:00] VITALS: BP 149/64
[2017-09-07] MEDS: sodium bicarbonate 650mg tablet PO SCH ×3 (10:00→20:14)
[2017-09-07] MEDS: folic acid 1mg tablet PO SCH (10:00)
[2017-09-07] MEDS: fludrocortisone acetate 0.1mg tablet PO SCH (10:00)
[2017-09-07] MEDS: atorvastatin 20mg tablet PO SCH (10:01)
[2017-09-07] MEDS: multivitamins, therapeutics tablet PO SCH (10:01)
[2017-09-07] MEDS: aspirin 81mg tablet.DR PO SCH (10:01)
[2017-09-07] MEDS: ferrous sulfate 325mg tablet PO SCH (10:01)
[2017-09-07] MEDS: tamsulosin 0.4mg capsule PO SCH (10:02)
[2017-09-07] MEDS: doxycycline hyclate 100mg tablet.DR PO SCH (10:03)
[2017-09-07] MEDS: folic acid/vitamin B complex w/vitamin C 0.8mg tablet PO SCH (10:03)
[2017-09-07] MEDS: metoprolol succinate 25mg (24-HOUR) SR. Tablet PO SCH (10:03)
[2017-09-07] MEDS: thiamine 100mg tablet PO SCH (10:03)
[2017-09-07] MEDS: duloxetine 30mg CAPSULE.DR PO SCH (10:04)
[2017-09-07] MEDS: sodium ferric gluc complex inj 125 MG in normal saline 100ml IV soln 100 ML IV SCH (10:05)
[2017-09-07] MEDS: lactobacillus rhamnosus 10,000 MMU CELLS/CAPSULE PO SCH ×2 (10:05→20:14)
[2017-09-07] MEDS: heparin, porcine 5000 units/ml vial SQ SCH ×2 (10:05→20:14)
[2017-09-07] MEDS: nystatin 15 GM powder TP SCH ×3 (10:06→21:52)
[2017-09-07 12:00] VITALS: BP 138/67
[2017-09-07 18:00] VITALS: BP 138/50
[2017-09-07] MEDS: insulin glargine (Lantus) pen - multi-dose SQ SCH (21:00)
[2017-09-08] VITALS: BP 127/47
[2017-09-08 05:30] LABS: BASOPHILS % (AUTO) 0.5 % (0-1); EOSINOPHILS # (AUTO) 0.1 X10'3 (0-0.9); EOSINOPHILS % (AUTO) 3.9 % (0-6); HEMATOCRIT 22.4 % (42.0-52.0); HEMOGLOBIN 7.8 g/dl (14.0-17.9); LYMPHOCYTES # (AUTO) 1.1 X10'3 (1.1-4.8); LYMPHOCYTES % (AUTO) 29.2 % (21-51); MEAN CORPUSCULAR HEMOGLOBIN 29.8 PG (27.0-31.0); MEAN CORPUSCULAR HGB CONC 34.7 % (33.0-36.5); MEAN PLATELET VOLUME 7.9 FL (7.4-10.4); MONOCYTES # (AUTO) 0.4 X10'3 (0-0.9); NEUTROPHILS # (AUTO) 2.1 X10'3 (1.8-7.7); NEUTROPHILS % (AUTO) 55.4 % (42-75); PLATELET COUNT 135 X10'3 (140-440); RED CELL DISTRIBUTION WIDTH 16.1 % (11.5-14.5); WHITE BLOOD COUNT 3.8 X10'3 (4.5-11.0)
[2017-09-08 05:58] LABS: ALANINE AMINOTRANSFERASE 21 U/L (12-78); ALBUMIN 2.1 G/DL (3.4-5.0); ALBUMIN/GLOBULIN RATIO 0.7 (1.1-1.5); ALKALINE PHOSPHATASE 68 IU/L (46-116); ANION GAP 10 (8-16); ASPARTATE AMINO TRANSFERASE 16 U/L (10-37); BILIRUBIN,TOTAL 0.4 MG/DL (0.1-1.0); BLOOD UREA NITROGEN 21 MG/DL (7-18); CALCIUM 8.1 MG/DL (8.5-10.1); CHLORIDE 103 MMOL/L (99-107); GLUCOSE 92 MG/DL (70-104); MAGNESIUM 1.5 MG/DL (1.5-2.4); PHOSPHORUS 3.7 MG/DL (2.3-4.5); POTASSIUM 3.2 MMOL/L (3.5-5.1); SODIUM 132 MMOL/L (135-145); TOTAL CARBON DIOXIDE 19.4 MMOL/L (24-32); TOTAL PROTEIN 5.1 G/DL (6.4-8.2); eGFR 49 ML/MIN
[2017-09-08 07:00] VITALS: BP 141/69
[2017-09-08] MEDS: heparin, porcine 5000 units/ml vial SQ SCH (09:32)
[2017-09-08] MEDS: atorvastatin 20mg tablet PO SCH (09:33)
[2017-09-08] MEDS: aspirin 81mg tablet.DR PO SCH (09:33)
[2017-09-08] MEDS: folic acid 1mg tablet PO SCH (09:33)
[2017-09-08] MEDS: ferrous sulfate 325mg tablet PO SCH (09:33)
[2017-09-08] MEDS: fludrocortisone acetate 0.1mg tablet PO SCH (09:33)
[2017-09-08] MEDS: metoprolol succinate 25mg (24-HOUR) SR. Tablet PO SCH (09:33)
[2017-09-08] MEDS: duloxetine 30mg CAPSULE.DR PO SCH (09:33)
[2017-09-08] MEDS: multivitamins, therapeutics tablet PO SCH (09:34)
[2017-09-08] MEDS: folic acid/vitamin B complex w/vitamin C 0.8mg tablet PO SCH (09:34)
[2017-09-08] MEDS: lactobacillus rhamnosus 10,000 MMU CELLS/CAPSULE PO SCH (09:34)
[2017-09-08] MEDS: sodium bicarbonate 650mg tablet PO SCH ×2 (09:34→15:30)
[2017-09-08] MEDS: tamsulosin 0.4mg capsule PO SCH (09:36)
[2017-09-08] MEDS: sodium ferric gluc complex inj 125 MG in normal saline 100ml IV soln 100 ML IV SCH (09:36)
[2017-09-08] MEDS: nystatin 15 GM powder TP SCH ×2 (09:58→13:00)
[2017-09-08] MEDS: thiamine 100mg tablet PO SCH (09:58)
[2017-09-08 12:00] VITALS: BP 131/64
[2017-09-08] MEDS ORDERED: potassium Cl 20 mEq SR tablet PO ONE (15:40)
== END 2017-09-08 16:10 | DRG 280 ==
LOC: ER 09:45 → ED HOLD 13:35 → PCU 3S 15:40 → SUR 3N 08-30 23:58
PROVIDERS: ADMIT Internal Medicine; ATTEND Family Medicine
DX: I21.A1 Myocardial infarction type 2 (principal); G92 Toxic encephalopathy; D61.818 Other pancytopenia; N17.9 Acute kidney failure, unspecified; N18.4 Chronic kidney disease, stage 4 (severe); E11.42 Type 2 diabetes mellitus with diabetic polyneuropathy; I12.0 Hypertensive chronic kidney disease with stage 5 chronic kidney disease or end stage renal disease; E11.22 Type 2 diabetes mellitus with diabetic chronic kidney disease; E87.1 Hypo-osmolality and hyponatremia; F10.27 Alcohol dependence with alcohol-induced persisting dementia; L03.317 Cellulitis of buttock; E11.51 Type 2 diabetes mellitus with diabetic peripheral angiopathy without gangrene; G90.8 Other disorders of autonomic nervous system; I95.1 Orthostatic hypotension; E78.5 Hyperlipidemia, unspecified; E86.0 Dehydration; E87.6 Hypokalemia; F03.90 Unspecified dementia, unspecified severity, without behavioral disturbance, psychotic disturbance, mood disturbance, and anxiety; G47.30 Sleep apnea, unspecified; F32.9 Major depressive disorder, single episode, unspecified; F41.9 Anxiety disorder, unspecified; G62.1 Alcoholic polyneuropathy; K57.90 Diverticulosis of intestine, part unspecified, without perforation or abscess without bleeding; M10.9 Gout, unspecified; I25.10 Atherosclerotic heart disease of native coronary artery without angina pectoris; J44.9 Chronic obstructive pulmonary disease, unspecified; N40.0 Benign prostatic hyperplasia without lower urinary tract symptoms; Z60.2 Problems related to living alone; E83.42 Hypomagnesemia; R29.6 Repeated falls; R62.7 Adult failure to thrive; Z66 Do not resuscitate; Z79.82 Long term (current) use of aspirin; Z79.899 Other long term (current) drug therapy; Z82.49 Family history of ischemic heart disease and other diseases of the circulatory system; I25.2 Old myocardial infarction; Z87.891 Personal history of nicotine dependence; Z95.1 Presence of aortocoronary bypass graft
CPT/HCPCS: 36415; 70450; 71045; 76775; 80048; 80053; 80069; 80305; 80329; 81001; 82140; 82948; 83036; 83540; 83550; 83605; 83735; 83880; 84100; 84132; 84145; 84443; 84484; 85025; 85610; 85730; 87040; 87070; 92616; 93005; 93306; 96360; 96361; 97110; 97116; 97162; 97530; 97535; 99285; A4315; A6212; A6213; A6250; J1644; J1815; J2060; J2543; J2916; J3411; J3475; J3490; J7030; J7040; J7060

== ENCOUNTER 2017-10-23 03:25 | Inpatient (IN) | payer OTHER ==
[~2017-10-23] VITALS: Ht 188 cm; Wt 78.0 kg
[~2017-10-23 03:25] MED LIST changes: -AMLO2.5T2 PO; -ASPI-611 PO; +ASPI81TA52 PO; +BISA10SU60 RC; +COLL30OI TP; -DULO-31 PO; +DULO60CA45 PO; +EPOE10004 SQ; -FERR134T2 PO; +FERR325T39 PO; +FLO0.1T PO; +FOLI0.8T19 PO; +FOLIC PO; +FURO40TA4 PO; +LACTC PO; -LISI-644 PO; +MAGN400O6 PO; +MAGN400T6 PO; -METF500T PO; +MULT1CAP44 PO; +NA P133E4 RC; -NIA500ERT PO; +NIT5P; -NITR0.4T48 SL; -PHEN30SP5 NS; +POTA10TA10 PO; +THI100T PO; -[UNRECOGNIZED DRUG - REMARK] PO
[2017-10-23] MEDS ORDERED: normal saline 1000ML IV soln IV ONE (04:00)
[2017-10-23] MEDS ORDERED: CefTRIAXone 2gm/D5W 50ml 50 ML IV ONE (04:40)
[2017-10-23 04:41] LABS: INR 1.1 INR; PARTIAL THROMBOPLASTIN TIME 28 SECONDS (22-32); PROTHROMBIN TIME 11.8 SECONDS (9.0-12.0)
[2017-10-23 04:45] LABS: ALANINE AMINOTRANSFERASE 27 U/L (12-78); ALBUMIN 2.1 G/DL (3.4-5.0); ALBUMIN/GLOBULIN RATIO 0.5 (1.1-1.5); ALKALINE PHOSPHATASE 118 IU/L (46-116); ANION GAP 6 (8-16); ASPARTATE AMINO TRANSFERASE 19 U/L (10-37); BILIRUBIN,TOTAL 0.7 MG/DL (0.1-1.0); BLOOD UREA NITROGEN 25 MG/DL (7-18); CALCIUM 8.6 MG/DL (8.5-10.1); CHLORIDE 97 MMOL/L (99-107); CREATININE 1.47 MG/DL (0.60-1.10); GLUCOSE 113 MG/DL (70-104); MAGNESIUM 1.8 MG/DL (1.5-2.4); POTASSIUM 4.2 MMOL/L (3.5-5.1); SODIUM 126 MMOL/L (135-145); TOTAL PROTEIN 6.1 G/DL (6.4-8.2); eGFR 46 ML/MIN
[2017-10-23 04:48] LABS: BASOPHILS % (AUTO) 0.5 % (0-1); EOSINOPHILS % (AUTO) 0.3 % (0-6); HEMATOCRIT 22.6 % (42.0-52.0); HEMOGLOBIN 7.7 g/dl (14.0-17.9); LYMPHOCYTES # (AUTO) 0.7 X10'3 (1.1-4.8); LYMPHOCYTES % (AUTO) 85.9 % (21-51); MEAN CORPUSCULAR HGB CONC 34.1 % (33.0-36.5); MEAN CORPUSCULAR VOLUME 81.9 FL (78-98); MEAN PLATELET VOLUME 7.1 FL (7.4-10.4); MONOCYTES # (AUTO) 0.1 X10'3 (0-0.9); MONOCYTES % (AUTO) 6.8 % (2-12); NEUTROPHILS % (AUTO) 6.5 % (42-75); PLATELET COUNT 192 X10'3 (140-440); RED BLOOD COUNT 2.76 X10'6 (4.70-6.10); RED CELL DISTRIBUTION WIDTH 16.1 % (11.5-14.5)
[2017-10-23 04:53] LABS: WHITE BLOOD COUNT 0.8 X10'3 (4.5-11.0)
[2017-10-23 05:05] LABS: CLARITY,URINE SLIGHTLY CLOUDY (Clear); COLOR,URINE YELLOW (Yellow); GLUCOSE, URINE NEGATIVE (Neg); KETONES,URINE NEGATIVE (Neg); LEUKOCYTE ESTERASE ,URINE NEGATIVE (Neg); NITRITES, URINE NEGATIVE (Neg); OCCULT BLOOD,URINE MODERATE (Neg); PROTEIN,URINE 100 mg/dl (Neg); UROBILINOGEN,URINE 0.2 E.U/dL (0.2-1.0)
[2017-10-23 05:13] LABS: UA COLLECTION TYPE STRAIGHT CATH
[2017-10-23 05:28] LABS: BACTERIA,URINE 2+ /HPF (Neg); SQUAMOUS EPITHELIAL CELL,UR FEW /LPF (FEW)
[2017-10-23 05:29] LABS: MUCUS STRANDS NONE SEEN /LPF (Neg); TRANSITIONAL EPI CELLS,URINE FEW /HPF
[2017-10-23 05:30] LABS: HYALINE CASTS 0-3 /LPF (NEGATIVE)
[2017-10-23] MEDS ORDERED: ondansetron/PF 4mg/2ml inj IV PRN (07:05)
[2017-10-23] MEDS ORDERED: sodium chloride 0.45% 1,000 ML IV SCH (07:05)
[2017-10-23] MEDS ORDERED: bisacodyl 10mg suppository rectal RC PRN (07:05)
[2017-10-23] MEDS ORDERED: magnesium hydroxide 30ml (MOM) UD suspension PO PRN (07:05)
[2017-10-23] MEDS ORDERED: cefepime 2g/NS 100ml ADVANTAGE 100 ML IV SCH ×2 (08:00)
[2017-10-23 09:00] VITALS: BP 108/52
[2017-10-23 11:00] VITALS: BP 122/40
[2017-10-23] MEDS ORDERED: ASCO-134 (13:27)
[2017-10-23] MEDS ORDERED: ZIN220C PO (13:27)
[2017-10-23] MEDS: normal saline 1000ml 1,000 ML IV SCH (13:30)
[2017-10-23] MEDS: piperacillin-tazo 2.25gm/50ml 50 ML IV SCH (16:08)
[2017-10-23] MEDS ORDERED: insulin Lispro (HumaLOG) vial - multi-dose SQ SCH (17:15)
[2017-10-23] MEDS ORDERED: dextrose 50%-water 50ml dispensing syringe IV PRN ×2 (17:15)
[2017-10-23] MEDS ORDERED: glucagon, human recombinant 1mg kit SUBCUT PRN (17:15)
[2017-10-23] MEDS ORDERED: dextrose ORAL solution 15 GM/59 ML bottle PO PRN ×2 (17:15)
[2017-10-23 19:00] VITALS: BP 131/59
[2017-10-23] MEDS: ciprofloxacin/D5W 200mg/100mL 100 ML IV SCH (20:22)
[2017-10-23] MEDS: insulin glargine (Lantus) pen - multi-dose SQ SCH (21:00)
[2017-10-23] MEDS: atorvastatin 20mg tablet PO SCH (21:11)
[2017-10-24] VITALS (9 sets, daily range): BP systolic 87–126; BP diastolic 37–51
[2017-10-24] MEDS: piperacillin-tazo 2.25gm/50ml 50 ML IV SCH ×3 (00:07→16:10)
[2017-10-24] MEDS: normal saline 1000ml 1,000 ML IV SCH (05:24)
[2017-10-24 06:01] LABS: MEAN CORPUSCULAR HEMOGLOBIN 27.8 PG (27.0-31.0); MEAN CORPUSCULAR HGB CONC 34.2 % (33.0-36.5); MEAN CORPUSCULAR VOLUME 81.2 FL (78-98); MEAN PLATELET VOLUME 7.7 FL (7.4-10.4); PLATELET COUNT 133 X10'3 (140-440); RED BLOOD COUNT 2.47 X10'6 (4.70-6.10); RED CELL DISTRIBUTION WIDTH 15.9 % (11.5-14.5)
[2017-10-24 06:33] LABS: ALANINE AMINOTRANSFERASE 28 U/L (12-78); ALBUMIN 1.6 G/DL (3.4-5.0); ALBUMIN/GLOBULIN RATIO 0.4 (1.1-1.5); ALKALINE PHOSPHATASE 89 IU/L (46-116); ANION GAP 14 (8-16); ASPARTATE AMINO TRANSFERASE 16 U/L (10-37); BILIRUBIN,TOTAL 0.6 MG/DL (0.1-1.0); BLOOD UREA NITROGEN 20 MG/DL (7-18); BUN/CREATININE RATIO 12.7 (5.4-32.0); CALCIUM 8.2 MG/DL (8.5-10.1); CHLORIDE 98 MMOL/L (99-107); CREATININE 1.57 MG/DL (0.60-1.10); GLUCOSE 86 MG/DL (70-104); MAGNESIUM 1.4 MG/DL (1.5-2.4); POTASSIUM 3.5 MMOL/L (3.5-5.1); SODIUM 129 MMOL/L (135-145); TOTAL CARBON DIOXIDE 17.5 MMOL/L (24-32); TOTAL PROTEIN 5.2 G/DL (6.4-8.2); eGFR 43 ML/MIN
[2017-10-24] MEDS: [UNRECOGNIZED DRUG - REMARK] TP SCH (06:39)
[2017-10-24 06:55] LABS: WHITE BLOOD COUNT 0.5 X10'3 (4.5-11.0)
[2017-10-24 06:56] LABS: HEMATOCRIT 20.1 % (42.0-52.0); HEMOGLOBIN 6.9 g/dl (14.0-17.9)
[2017-10-24 07:30] LABS: TOTAL CELLS COUNTED 100
[2017-10-24 07:31] LABS: ANISOCYTOSIS 1+; MICROCYTOSIS 1+; PLATELET ESTIMATE DECREASED
[2017-10-24 07:32] LABS: POLYCHROMASIA FEW
[2017-10-24] MEDS ORDERED: TBO-filgrastim 300 MCG/0.5 ML inj. SQ ONE (08:25)
[2017-10-24] MEDS: duloxetine 30mg CAPSULE.DR PO SCH (09:08)
[2017-10-24] MEDS: tamsulosin 0.4mg capsule PO SCH (09:08)
[2017-10-24] MEDS: zinc sulfate 220mg capsule PO SCH (09:08)
[2017-10-24] MEDS: folic acid/vitamin B complex w/vitamin C 0.8mg tablet PO SCH (09:08)
[2017-10-24] MEDS: fludrocortisone acetate 0.1mg tablet PO SCH (09:09)
[2017-10-24] MEDS: ferrous sulfate 325mg tablet PO SCH (09:09)
[2017-10-24] MEDS: metoprolol succinate 25mg (24-HOUR) SR. Tablet PO SCH (09:09)
[2017-10-24] MEDS: ciprofloxacin/D5W 200mg/100mL 100 ML IV SCH ×2 (09:09→20:13)
[2017-10-24] MEDS: vancomycin/NS 1 GM ADD-VANTAGE 250 ML IV SCH (10:26)
[2017-10-24] MEDS: acetaminophen 325mg tablet PO PRN (15:19)
[2017-10-24] MEDS: insulin glargine (Lantus) pen - multi-dose SQ SCH (21:00)
[2017-10-24] MEDS: atorvastatin 20mg tablet PO SCH (21:55)
[2017-10-25] VITALS: BP 92/55
[2017-10-25] MEDS: piperacillin-tazo 2.25gm/50ml 50 ML IV SCH ×4 (00:11→23:50)
[2017-10-25] MEDS: normal saline 1000ml 1,000 ML IV SCH (05:44)
[2017-10-25 06:06] LABS: BASOPHILS % (AUTO) 0.9 % (0-1); HEMATOCRIT 22.4 % (42.0-52.0); HEMOGLOBIN 7.6 g/dl (14.0-17.9); LYMPHOCYTES # (AUTO) 0.4 X10'3 (1.1-4.8); LYMPHOCYTES % (AUTO) 40.4 % (21-51); MEAN CORPUSCULAR HEMOGLOBIN 28.2 PG (27.0-31.0); MEAN CORPUSCULAR HGB CONC 33.9 % (33.0-36.5); MEAN CORPUSCULAR VOLUME 83.2 FL (78-98); MEAN PLATELET VOLUME 8.1 FL (7.4-10.4); MONOCYTES # (AUTO) 0.3 X10'3 (0-0.9); MONOCYTES % (AUTO) 25.3 % (2-12); NEUTROPHILS # (AUTO) 0.3 X10'3 (1.8-7.7); NEUTROPHILS % (AUTO) 32.4 % (42-75); PLATELET COUNT 126 X10'3 (140-440); RED BLOOD COUNT 2.69 X10'6 (4.70-6.10); RED CELL DISTRIBUTION WIDTH 16.4 % (11.5-14.5)
[2017-10-25 06:22] LABS: ALANINE AMINOTRANSFERASE 28 U/L (12-78); ALBUMIN 1.5 G/DL (3.4-5.0); ALBUMIN/GLOBULIN RATIO 0.4 (1.1-1.5); ALKALINE PHOSPHATASE 95 IU/L (46-116); ANION GAP 10 (8-16); ASPARTATE AMINO TRANSFERASE 19 U/L (10-37); BLOOD UREA NITROGEN 25 MG/DL (7-18); CALCIUM 8.9 MG/DL (8.5-10.1); CHLORIDE 100 MMOL/L (99-107); CREATININE 1.56 MG/DL (0.60-1.10); GLUCOSE 78 MG/DL (70-104); MAGNESIUM 1.5 MG/DL (1.5-2.4); POTASSIUM 3.4 MMOL/L (3.5-5.1); SODIUM 130 MMOL/L (135-145); TOTAL CARBON DIOXIDE 20.1 MMOL/L (24-32); TOTAL PROTEIN 5.1 G/DL (6.4-8.2); eGFR 43 ML/MIN
[2017-10-25 06:53] VITALS: BP 97/58
[2017-10-25 06:54] LABS: ANISOCYTOSIS 1+; PLATELET ESTIMATE DECREASED; TOTAL CELLS COUNTED 50
[2017-10-25 06:55] LABS: POLYCHROMASIA FEW
[2017-10-25] MEDS: metoprolol succinate 25mg (24-HOUR) SR. Tablet PO SCH (08:00)
[2017-10-25] MEDS: [UNRECOGNIZED DRUG - REMARK] TP SCH (08:00)
[2017-10-25] MEDS: ciprofloxacin/D5W 200mg/100mL 100 ML IV SCH (08:27)
[2017-10-25] MEDS: folic acid/vitamin B complex w/vitamin C 0.8mg tablet PO SCH (08:27)
[2017-10-25] MEDS: ferrous sulfate 325mg tablet PO SCH (08:27)
[2017-10-25] MEDS: tamsulosin 0.4mg capsule PO SCH (08:27)
[2017-10-25] MEDS: fludrocortisone acetate 0.1mg tablet PO SCH (08:27)
[2017-10-25] MEDS: duloxetine 30mg CAPSULE.DR PO SCH (08:27)
[2017-10-25] MEDS ORDERED: TBO-filgrastim 300 MCG/0.5 ML inj. SQ ONE (09:05)
[2017-10-25] MEDS: zinc sulfate 220mg capsule PO SCH (09:50)
[2017-10-25] MEDS: vancomycin/NS 1 GM ADD-VANTAGE 250 ML IV SCH (10:02)
[2017-10-25 10:50] VITALS: BP 121/63
[2017-10-25 19:00] VITALS: BP 92/49
[2017-10-25] MEDS: atorvastatin 20mg tablet PO SCH (20:59)
[2017-10-25] MEDS: insulin glargine (Lantus) pen - multi-dose SQ SCH (21:00)
[2017-10-25 23:00] VITALS: BP 119/62
[2017-10-26] MEDS: normal saline 1000ml 1,000 ML IV SCH ×2 (04:15→21:30)
[2017-10-26 05:16] LABS: BASOPHILS % (AUTO) 0.1 % (0-1); EOSINOPHILS % (AUTO) 0.6 % (0-6); HEMATOCRIT 23.3 % (42.0-52.0); HEMOGLOBIN 7.8 g/dl (14.0-17.9); LYMPHOCYTES # (AUTO) 0.6 X10'3 (1.1-4.8); LYMPHOCYTES % (AUTO) 10.2 % (21-51); MEAN CORPUSCULAR HGB CONC 33.6 % (33.0-36.5); MEAN CORPUSCULAR VOLUME 83.2 FL (78-98); MEAN PLATELET VOLUME 8.6 FL (7.4-10.4); MONOCYTES # (AUTO) 0.3 X10'3 (0-0.9); MONOCYTES % (AUTO) 5.4 % (2-12); NEUTROPHILS # (AUTO) 5.1 X10'3 (1.8-7.7); NEUTROPHILS % (AUTO) 83.7 % (42-75); PLATELET COUNT 161 X10'3 (140-440); RED CELL DISTRIBUTION WIDTH 16.8 % (11.5-14.5)
[2017-10-26 05:41] LABS: ALANINE AMINOTRANSFERASE 28 U/L (12-78); ALBUMIN 1.4 G/DL (3.4-5.0); ALBUMIN/GLOBULIN RATIO 0.4 (1.1-1.5); ALKALINE PHOSPHATASE 133 IU/L (46-116); ANION GAP 15 (8-16); ASPARTATE AMINO TRANSFERASE 19 U/L (10-37); BILIRUBIN,TOTAL 0.7 MG/DL (0.1-1.0); BLOOD UREA NITROGEN 26 MG/DL (7-18); BUN/CREATININE RATIO 15.2 (5.4-32.0); CALCIUM 8.5 MG/DL (8.5-10.1); CHLORIDE 101 MMOL/L (99-107); CREATININE 1.71 MG/DL (0.60-1.10); GLUCOSE 106 MG/DL (70-104); MAGNESIUM 1.4 MG/DL (1.5-2.4); SODIUM 133 MMOL/L (135-145); TOTAL CARBON DIOXIDE 17.5 MMOL/L (24-32); TOTAL PROTEIN 5.1 G/DL (6.4-8.2); eGFR 39 ML/MIN
[2017-10-26 05:50] LABS: POTASSIUM 2.9 MMOL/L (3.5-5.1)
[2017-10-26] MEDS ORDERED: potassium Cl 40MEQ/NS 500ml 500 ML IV PRN ×2 (06:35)
[2017-10-26 06:40] LABS: TOTAL CELLS COUNTED 100
[2017-10-26 06:41] LABS: ANISOCYTOSIS 1+; PLATELET ESTIMATE NORMAL; TOXIC GRANULATION 1+
[2017-10-26 07:00] VITALS: BP 112/47
[2017-10-26] MEDS: zinc sulfate 220mg capsule PO SCH (07:56)
[2017-10-26] MEDS: ferrous sulfate 325mg tablet PO SCH (07:56)
[2017-10-26] MEDS: metoprolol succinate 25mg (24-HOUR) SR. Tablet PO SCH (07:56)
[2017-10-26] MEDS: duloxetine 30mg CAPSULE.DR PO SCH (07:56)
[2017-10-26] MEDS: fludrocortisone acetate 0.1mg tablet PO SCH (07:56)
[2017-10-26] MEDS: folic acid/vitamin B complex w/vitamin C 0.8mg tablet PO SCH (07:56)
[2017-10-26] MEDS: piperacillin-tazo 2.25gm/50ml 50 ML IV SCH ×2 (07:56→16:32)
[2017-10-26] MEDS: tamsulosin 0.4mg capsule PO SCH (07:57)
[2017-10-26] MEDS ORDERED: TBO-filgrastim 300 MCG/0.5 ML inj. SQ SCH (08:00)
[2017-10-26] MEDS: [UNRECOGNIZED DRUG - REMARK] TP SCH (08:00)
[2017-10-26] MEDS: vancomycin/NS 1 GM ADD-VANTAGE 250 ML IV SCH (10:07)
[2017-10-26 11:00] VITALS: BP 131/59
[2017-10-26] MEDS: potassium Cl 20 mEq SR tablet PO PRN ×2 (18:12→21:14)
[2017-10-26 18:50] VITALS: BP 129/61
[2017-10-26] MEDS: insulin glargine (Lantus) pen - multi-dose SQ SCH (21:00)
[2017-10-26] MEDS: atorvastatin 20mg tablet PO SCH (21:14)
[2017-10-26 23:00] VITALS: BP 90/54
[2017-10-27] MEDS: normal saline 1000ml 1,000 ML IV SCH (01:47)
[2017-10-27 05:06] LABS: BASOPHILS % (AUTO) 0.3 % (0-1); EOSINOPHILS # (AUTO) 0.1 X10'3 (0-0.9); EOSINOPHILS % (AUTO) 0.6 % (0-6); HEMATOCRIT 25.1 % (42.0-52.0); HEMOGLOBIN 8.4 g/dl (14.0-17.9); LYMPHOCYTES # (AUTO) 0.9 X10'3 (1.1-4.8); LYMPHOCYTES % (AUTO) 7.8 % (21-51); MEAN CORPUSCULAR HEMOGLOBIN 28.3 PG (27.0-31.0); MEAN CORPUSCULAR HGB CONC 33.5 % (33.0-36.5); MEAN CORPUSCULAR VOLUME 84.4 FL (78-98); MEAN PLATELET VOLUME 8.4 FL (7.4-10.4); MONOCYTES # (AUTO) 0.5 X10'3 (0-0.9); MONOCYTES % (AUTO) 4.3 % (2-12); NEUTROPHILS # (AUTO) 10.3 X10'3 (1.8-7.7); PLATELET COUNT 185 X10'3 (140-440); RED BLOOD COUNT 2.98 X10'6 (4.70-6.10); RED CELL DISTRIBUTION WIDTH 16.7 % (11.5-14.5); WHITE BLOOD COUNT 11.8 X10'3 (4.5-11.0)
[2017-10-27 05:21] LABS: ALANINE AMINOTRANSFERASE 33 U/L (12-78); ALBUMIN 1.4 G/DL (3.4-5.0); ALBUMIN/GLOBULIN RATIO 0.4 (1.1-1.5); ALKALINE PHOSPHATASE 146 IU/L (46-116); ANION GAP 11 (8-16); ASPARTATE AMINO TRANSFERASE 22 U/L (10-37); BILIRUBIN,TOTAL 0.5 MG/DL (0.1-1.0); BLOOD UREA NITROGEN 25 MG/DL (7-18); CALCIUM 8.3 MG/DL (8.5-10.1); CHLORIDE 104 MMOL/L (99-107); CREATININE 1.56 MG/DL (0.60-1.10); GLUCOSE 94 MG/DL (70-104); MAGNESIUM 1.5 MG/DL (1.5-2.4); POTASSIUM 3.2 MMOL/L (3.5-5.1); SODIUM 135 MMOL/L (135-145); TOTAL CARBON DIOXIDE 19.6 MMOL/L (24-32); TOTAL PROTEIN 5.2 G/DL (6.4-8.2); eGFR 43 ML/MIN
[2017-10-27 06:28] LABS: ANISOCYTOSIS 1+; PLATELET ESTIMATE NORMAL; TOTAL CELLS COUNTED 100
[2017-10-27 06:29] LABS: TOXIC GRANULATION 1+
[2017-10-27 07:00] VITALS: BP 137/64
[2017-10-27] MEDS: [UNRECOGNIZED DRUG - REMARK] TP SCH (07:46)
[2017-10-27] MEDS: ferrous sulfate 325mg tablet PO SCH (07:56)
[2017-10-27] MEDS: folic acid/vitamin B complex w/vitamin C 0.8mg tablet PO SCH (07:56)
[2017-10-27] MEDS: duloxetine 30mg CAPSULE.DR PO SCH (07:56)
[2017-10-27] MEDS: tamsulosin 0.4mg capsule PO SCH (07:57)
[2017-10-27] MEDS: zinc sulfate 220mg capsule PO SCH (07:57)
[2017-10-27] MEDS: fludrocortisone acetate 0.1mg tablet PO SCH (07:57)
[2017-10-27] MEDS: potassium Cl 20 mEq SR tablet PO PRN ×2 (07:57→16:56)
[2017-10-27] MEDS: metoprolol succinate 25mg (24-HOUR) SR. Tablet PO SCH (07:57)
[2017-10-27] MEDS ORDERED: VANCOMYCIN LEVEL IV ONE (09:30)
[2017-10-27] MEDS: vancomycin/NS 1 GM ADD-VANTAGE 250 ML IV SCH (10:45)
[2017-10-27 11:00] VITALS: BP 141/68
[2017-10-27] MEDS: insulin glargine (Lantus) pen - multi-dose SQ SCH (19:08)
[2017-10-27] MEDS: lactobacillus rhamnosus 10,000 MMU CELLS/CAPSULE PO SCH (20:52)
[2017-10-27] MEDS: atorvastatin 20mg tablet PO SCH (20:52)
[2017-10-28] VITALS: BP 151/72
[2017-10-28] MEDS: normal saline 1000ml 1,000 ML IV SCH (03:35)
[2017-10-28 05:39] LABS: BASOPHILS % (AUTO) 0.1 % (0-1); EOSINOPHILS % (AUTO) 0 % (0-6); HEMATOCRIT 28.9 % (42.0-52.0); HEMOGLOBIN 9.5 g/dl (14.0-17.9); LYMPHOCYTES # (AUTO) 1.1 X10'3 (1.1-4.8); LYMPHOCYTES % (AUTO) 6.8 % (21-51); MEAN CORPUSCULAR HEMOGLOBIN 27.6 PG (27.0-31.0); MEAN CORPUSCULAR HGB CONC 32.7 % (33.0-36.5); MEAN CORPUSCULAR VOLUME 84.3 FL (78-98); MEAN PLATELET VOLUME 8.3 FL (7.4-10.4); MONOCYTES # (AUTO) 0.4 X10'3 (0-0.9); MONOCYTES % (AUTO) 2.1 % (2-12); NEUTROPHILS # (AUTO) 14.9 X10'3 (1.8-7.7); PLATELET COUNT 211 X10'3 (140-440); RED BLOOD COUNT 3.43 X10'6 (4.70-6.10); RED CELL DISTRIBUTION WIDTH 17.5 % (11.5-14.5); WHITE BLOOD COUNT 16.3 X10'3 (4.5-11.0)
[2017-10-28 05:51] LABS: ALANINE AMINOTRANSFERASE 44 U/L (12-78); ALBUMIN 1.7 G/DL (3.4-5.0); ALBUMIN/GLOBULIN RATIO 0.4 (1.1-1.5); ALKALINE PHOSPHATASE 234 IU/L (46-116); ANION GAP 14 (8-16); ASPARTATE AMINO TRANSFERASE 44 U/L (10-37); BILIRUBIN,TOTAL 0.6 MG/DL (0.1-1.0); BLOOD UREA NITROGEN 22 MG/DL (7-18); BUN/CREATININE RATIO 16.3 (5.4-32.0); CALCIUM 8.7 MG/DL (8.5-10.1); CHLORIDE 104 MMOL/L (99-107); CREATININE 1.35 MG/DL (0.60-1.10); GLUCOSE 100 MG/DL (70-104); MAGNESIUM 1.6 MG/DL (1.5-2.4); POTASSIUM 3.2 MMOL/L (3.5-5.1); SODIUM 138 MMOL/L (135-145); TOTAL CARBON DIOXIDE 20.2 MMOL/L (24-32); TOTAL PROTEIN 6.1 G/DL (6.4-8.2); eGFR 51 ML/MIN
[2017-10-28 06:31] LABS: TOTAL CELLS COUNTED 100
[2017-10-28 06:32] LABS: ANISOCYTOSIS 2+; PLATELET ESTIMATE NORMAL; TOXIC GRANULATION 1+
[2017-10-28 07:00] VITALS: BP 146/71
[2017-10-28] MEDS: zinc sulfate 220mg capsule PO SCH (07:42)
[2017-10-28] MEDS: ferrous sulfate 325mg tablet PO SCH (07:42)
[2017-10-28] MEDS: tamsulosin 0.4mg capsule PO SCH (07:42)
[2017-10-28] MEDS: potassium Cl 20 mEq SR tablet PO PRN ×3 (07:42→17:17)
[2017-10-28] MEDS: folic acid/vitamin B complex w/vitamin C 0.8mg tablet PO SCH (07:42)
[2017-10-28] MEDS: duloxetine 30mg CAPSULE.DR PO SCH (07:42)
[2017-10-28] MEDS: fludrocortisone acetate 0.1mg tablet PO SCH (07:43)
[2017-10-28] MEDS: lactobacillus rhamnosus 10,000 MMU CELLS/CAPSULE PO SCH ×2 (07:43→19:52)
[2017-10-28] MEDS: [UNRECOGNIZED DRUG - REMARK] TP SCH (07:43)
[2017-10-28] MEDS: metoprolol succinate 25mg (24-HOUR) SR. Tablet PO SCH (07:43)
[2017-10-28] MEDS: vancomycin inj 1,250 MG in normal saline 250ml IV soln 250 ML IV SCH (10:43)
[2017-10-28 11:09] VITALS: BP 138/57
[2017-10-28] MEDS: acetaminophen 325mg tablet PO PRN (13:41)
[2017-10-28 18:00] VITALS: BP 174/88
[2017-10-28] MEDS: atorvastatin 20mg tablet PO SCH (19:52)
[2017-10-28] MEDS: insulin glargine (Lantus) pen - multi-dose SQ SCH (20:54)
[2017-10-29 00:41] VITALS: BP 161/97
[2017-10-29 07:00] VITALS: BP 175/91
[2017-10-29] MEDS: folic acid/vitamin B complex w/vitamin C 0.8mg tablet PO SCH (07:24)
[2017-10-29] MEDS: fludrocortisone acetate 0.1mg tablet PO SCH (07:24)
[2017-10-29] MEDS: ferrous sulfate 325mg tablet PO SCH (07:24)
[2017-10-29] MEDS: lactobacillus rhamnosus 10,000 MMU CELLS/CAPSULE PO SCH ×2 (07:24→19:40)
[2017-10-29] MEDS: metoprolol succinate 25mg (24-HOUR) SR. Tablet PO SCH (07:24)
[2017-10-29] MEDS: duloxetine 30mg CAPSULE.DR PO SCH (07:24)
[2017-10-29] MEDS: zinc sulfate 220mg capsule PO SCH (07:24)
[2017-10-29] MEDS: tamsulosin 0.4mg capsule PO SCH (07:24)
[2017-10-29] MEDS: [UNRECOGNIZED DRUG - REMARK] TP SCH (08:00)
[2017-10-29] MEDS: vancomycin inj 1,250 MG in normal saline 250ml IV soln 250 ML IV SCH (10:33)
[2017-10-29 12:00] VITALS: BP 171/101
[2017-10-29] MEDS ORDERED: potassium Cl 40MEQ/NS 500ml 500 ML IV PRN (12:00)
[2017-10-29] MEDS ORDERED: magnesium 1gm/100ml D5W IVPB 50 ML IV PRN (12:00)
[2017-10-29] MEDS ORDERED: magnesium Cl slow-release 64mg tablet PO PRN (12:00)
[2017-10-29] MEDS ORDERED: magnesium 4gm in 100ml NS 100 ML IV PRN (12:00)
[2017-10-29] MEDS ORDERED: potassium Cl 20 mEq SR tablet PO PRN ×2 (12:00)
[2017-10-29] MEDS: K and/or MAG REPLACEMENT MC SCH (12:00)
[2017-10-29] MEDS ORDERED: ipratropium/albuterol 3ml nebule NEB PRN (12:00)
[2017-10-29] MEDS: furosemide 40mg/4ml inj IV SCH (13:03)
[2017-10-29 13:24] LABS: HEMATOCRIT 30.4 % (42.0-52.0); HEMOGLOBIN 9.9 g/dl (14.0-17.9); MEAN CORPUSCULAR HEMOGLOBIN 27.6 PG (27.0-31.0); MEAN CORPUSCULAR HGB CONC 32.7 % (33.0-36.5); MEAN CORPUSCULAR VOLUME 84.3 FL (78-98); MEAN PLATELET VOLUME 8.2 FL (7.4-10.4); PLATELET COUNT 249 X10'3 (140-440); RED BLOOD COUNT 3.61 X10'6 (4.70-6.10); RED CELL DISTRIBUTION WIDTH 18.3 % (11.5-14.5)
[2017-10-29 13:29] LABS: WHITE BLOOD COUNT 25.1 X10'3 (4.5-11.0)
[2017-10-29 13:30] LABS: ALANINE AMINOTRANSFERASE 38 U/L (12-78); ALBUMIN 1.8 G/DL (3.4-5.0); ALBUMIN/GLOBULIN RATIO 0.4 (1.1-1.5); ALKALINE PHOSPHATASE 199 IU/L (46-116); ANION GAP 13 (8-16); ASPARTATE AMINO TRANSFERASE 26 U/L (10-37); BILIRUBIN,TOTAL 0.6 MG/DL (0.1-1.0); BLOOD UREA NITROGEN 22 MG/DL (7-18); BUN/CREATININE RATIO 16.3 (5.4-32.0); CALCIUM 8.3 MG/DL (8.5-10.1); CHLORIDE 106 MMOL/L (99-107); CREATININE 1.35 MG/DL (0.60-1.10); GLUCOSE 142 MG/DL (70-104); POTASSIUM 3.4 MMOL/L (3.5-5.1); SODIUM 138 MMOL/L (135-145); TOTAL CARBON DIOXIDE 19.1 MMOL/L (24-32); TOTAL PROTEIN 6.1 G/DL (6.4-8.2); eGFR 51 ML/MIN
[2017-10-29 14:23] LABS: TOTAL CELLS COUNTED 100
[2017-10-29 14:27] LABS: ANISOCYTOSIS 2+; PLATELET ESTIMATE NORMAL; TOXIC GRANULATION 1+
[2017-10-29] MEDS: ipratropium/albuterol 3ml nebule NEB SCH ×3 (15:49→23:45)
[2017-10-29] MEDS: piperacillin/tazo 3.375gm/50ml 50 ML IV SCH ×2 (16:48→23:50)
[2017-10-29 18:00] VITALS: BP 160/76
[2017-10-29] MEDS: atorvastatin 20mg tablet PO SCH (20:13)
[2017-10-29] MEDS: insulin glargine (Lantus) pen - multi-dose SQ SCH (20:13)
[2017-10-29] MEDS: normal saline 1000ml 1,000 ML IV SCH ×2 (20:40→23:54)
[2017-10-30] VITALS: BP 133/63
[2017-10-30 05:25] LABS: BASOPHILS % (AUTO) 0.2 % (0-1); EOSINOPHILS % (AUTO) 0 % (0-6); HEMATOCRIT 25.2 % (42.0-52.0); HEMOGLOBIN 8.4 g/dl (14.0-17.9); LYMPHOCYTES # (AUTO) 1.3 X10'3 (1.1-4.8); MEAN CORPUSCULAR HEMOGLOBIN 27.7 PG (27.0-31.0); MEAN CORPUSCULAR HGB CONC 33.4 % (33.0-36.5); MEAN CORPUSCULAR VOLUME 82.9 FL (78-98); MEAN PLATELET VOLUME 8.1 FL (7.4-10.4); MONOCYTES # (AUTO) 0.8 X10'3 (0-0.9); MONOCYTES % (AUTO) 5.4 % (2-12); NEUTROPHILS # (AUTO) 12.2 X10'3 (1.8-7.7); NEUTROPHILS % (AUTO) 85.4 % (42-75); PLATELET COUNT 205 X10'3 (140-440); RED BLOOD COUNT 3.04 X10'6 (4.70-6.10); RED CELL DISTRIBUTION WIDTH 17.8 % (11.5-14.5); WHITE BLOOD COUNT 14.2 X10'3 (4.5-11.0)
[2017-10-30 06:28] LABS: ANISOCYTOSIS 2+; PLATELET ESTIMATE NORMAL; TOTAL CELLS COUNTED 100
[2017-10-30 06:29] LABS: TOXIC GRANULATION 1+
[2017-10-30 06:44] LABS: ALANINE AMINOTRANSFERASE 31 U/L (12-78); ALBUMIN 1.5 G/DL (3.4-5.0); ALBUMIN/GLOBULIN RATIO 0.4 (1.1-1.5); ALKALINE PHOSPHATASE 156 IU/L (46-116); ANION GAP 14 (8-16); ASPARTATE AMINO TRANSFERASE 26 U/L (10-37); BILIRUBIN,TOTAL 0.5 MG/DL (0.1-1.0); BLOOD UREA NITROGEN 21 MG/DL (7-18); BUN/CREATININE RATIO 14.8 (5.4-32.0); CALCIUM 7.9 MG/DL (8.5-10.1); CHLORIDE 106 MMOL/L (99-107); CREATININE 1.42 MG/DL (0.60-1.10); GLUCOSE 101 MG/DL (70-104); MAGNESIUM 1.4 MG/DL (1.5-2.4); SODIUM 141 MMOL/L (135-145); TOTAL CARBON DIOXIDE 21.1 MMOL/L (24-32); TOTAL PROTEIN 5.3 G/DL (6.4-8.2); eGFR 48 ML/MIN
[2017-10-30 06:45] LABS: POTASSIUM 2.8 MMOL/L (3.5-5.1)
[2017-10-30 07:00] VITALS: BP 135/58
[2017-10-30] MEDS: piperacillin/tazo 3.375gm/50ml 50 ML IV SCH (07:04)
[2017-10-30] MEDS: ipratropium/albuterol 3ml nebule NEB SCH ×5 (07:38→22:44)
[2017-10-30] MEDS: furosemide 40mg/4ml inj IV SCH (08:00)
[2017-10-30] MEDS: [UNRECOGNIZED DRUG - REMARK] TP SCH (08:00)
[2017-10-30] MEDS: tamsulosin 0.4mg capsule PO SCH (08:00)
[2017-10-30] MEDS: duloxetine 30mg CAPSULE.DR PO SCH (08:00)
[2017-10-30] MEDS: K and/or MAG REPLACEMENT MC SCH (08:00)
[2017-10-30] MEDS: zinc sulfate 220mg capsule PO SCH (08:00)
[2017-10-30] MEDS: lactobacillus rhamnosus 10,000 MMU CELLS/CAPSULE PO SCH ×2 (08:00→19:07)
[2017-10-30] MEDS: folic acid/vitamin B complex w/vitamin C 0.8mg tablet PO SCH (08:00)
[2017-10-30] MEDS: metoprolol succinate 25mg (24-HOUR) SR. Tablet PO SCH (08:00)
[2017-10-30] MEDS: ferrous sulfate 325mg tablet PO SCH (08:00)
[2017-10-30] MEDS: potassium Cl 40MEQ/NS 500ml 500 ML IV PRN ×2 (08:27→14:31)
[2017-10-30 11:00] VITALS: BP 143/59
[2017-10-30] MEDS: magnesium 1gm/100ml D5W IVPB 100 ML IV PRN ×2 (11:33→13:00)
[2017-10-30] MEDS: vancomycin inj 1,250 MG in normal saline 250ml IV soln 250 ML IV SCH (12:23)
[2017-10-30] MEDS: piperacillin-tazo 2.25gm/50ml 50 ML IV SCH ×2 (14:30→19:07)
[2017-10-30] MEDS: potassium Cl 20mEq in NS 1,000 ML IV SCH ×2 (17:31→19:15)
[2017-10-30 18:00] VITALS: BP 162/81
[2017-10-30] MEDS: insulin glargine (Lantus) pen - multi-dose SQ SCH (20:51)
[2017-10-30] MEDS: atorvastatin 20mg tablet PO SCH (20:51)
[2017-10-31] VITALS: BP 163/79
[2017-10-31] MEDS: piperacillin-tazo 2.25gm/50ml 50 ML IV SCH ×4 (01:59→19:48)
[2017-10-31] MEDS: potassium Cl 20mEq in NS 1,000 ML IV SCH ×2 (04:26→15:28)
[2017-10-31 05:09] LABS: BASOPHILS % (AUTO) 0.1 % (0-1); EOSINOPHILS % (AUTO) 0 % (0-6); HEMATOCRIT 28.2 % (42.0-52.0); HEMOGLOBIN 9.3 g/dl (14.0-17.9); LYMPHOCYTES # (AUTO) 1.2 X10'3 (1.1-4.8); LYMPHOCYTES % (AUTO) 7.5 % (21-51); MEAN CORPUSCULAR HEMOGLOBIN 27.7 PG (27.0-31.0); MONOCYTES # (AUTO) 0.7 X10'3 (0-0.9); MONOCYTES % (AUTO) 4.4 % (2-12); NEUTROPHILS # (AUTO) 13.6 X10'3 (1.8-7.7); PLATELET COUNT 251 X10'3 (140-440); RED BLOOD COUNT 3.36 X10'6 (4.70-6.10); RED CELL DISTRIBUTION WIDTH 17.9 % (11.5-14.5); WHITE BLOOD COUNT 15.4 X10'3 (4.5-11.0)
[2017-10-31 06:00] LABS: ALANINE AMINOTRANSFERASE 30 U/L (12-78); ALBUMIN 1.8 G/DL (3.4-5.0); ALBUMIN/GLOBULIN RATIO 0.4 (1.1-1.5); ALKALINE PHOSPHATASE 159 IU/L (46-116); ANION GAP 14 (8-16); ASPARTATE AMINO TRANSFERASE 28 U/L (10-37); BILIRUBIN,TOTAL 0.7 MG/DL (0.1-1.0); BLOOD UREA NITROGEN 17 MG/DL (7-18); BUN/CREATININE RATIO 13.7 (5.4-32.0); CALCIUM 8.2 MG/DL (8.5-10.1); CHLORIDE 106 MMOL/L (99-107); CREATININE 1.24 MG/DL (0.60-1.10); GLUCOSE 111 MG/DL (70-104); MAGNESIUM 2.3 MG/DL (1.5-2.4); POTASSIUM 3.7 MMOL/L (3.5-5.1); SODIUM 140 MMOL/L (135-145); TOTAL CARBON DIOXIDE 20.2 MMOL/L (24-32); TOTAL PROTEIN 6.1 G/DL (6.4-8.2); eGFR 56 ML/MIN
[2017-10-31 07:24] VITALS: BP 172/91
[2017-10-31 07:27] LABS: ANISOCYTOSIS 2+; NUCLEATED RED BLOOD CELLS 3 /100WBC (0-0); PLATELET ESTIMATE NORMAL; TOTAL CELLS COUNTED 100; TOXIC GRANULATION 2+
[2017-10-31] MEDS: ipratropium/albuterol 3ml nebule NEB SCH ×5 (07:31→23:26)
[2017-10-31] MEDS: tamsulosin 0.4mg capsule PO SCH (08:00)
[2017-10-31] MEDS: metoprolol succinate 25mg (24-HOUR) SR. Tablet PO SCH (08:00)
[2017-10-31] MEDS: K and/or MAG REPLACEMENT MC SCH (08:00)
[2017-10-31] MEDS: ferrous sulfate 325mg tablet PO SCH (08:00)
[2017-10-31] MEDS: zinc sulfate 220mg capsule PO SCH (08:00)
[2017-10-31] MEDS: duloxetine 30mg CAPSULE.DR PO SCH (08:00)
[2017-10-31] MEDS: folic acid/vitamin B complex w/vitamin C 0.8mg tablet PO SCH (08:00)
[2017-10-31] MEDS: [UNRECOGNIZED DRUG - REMARK] TP SCH (08:00)
[2017-10-31] MEDS: lactobacillus rhamnosus 10,000 MMU CELLS/CAPSULE PO SCH ×2 (08:00→19:50)
[2017-10-31] MEDS ORDERED: VANCOMYCIN LEVEL IV ONE (09:30)
[2017-10-31] MEDS: vancomycin inj 1,250 MG in normal saline 250ml IV soln 250 ML IV SCH (11:28)
[2017-10-31] MEDS ORDERED: metoprolol succinate 25mg (24-HOUR) SR. Tablet PO SCH (11:40)
[2017-10-31 12:18] VITALS: BP 151/87
[2017-10-31] MEDS: insulin glargine (Lantus) pen - multi-dose SQ SCH (19:51)
[2017-10-31] MEDS: atorvastatin 20mg tablet PO SCH (19:51)
[2017-10-31 20:00] VITALS: BP 171/90
[2017-11-01] VITALS: BP 174/94
[2017-11-01] MEDS: potassium Cl 20mEq in NS 1,000 ML IV SCH ×3 (01:29→15:27)
[2017-11-01] MEDS: piperacillin-tazo 2.25gm/50ml 50 ML IV SCH ×4 (01:29→19:26)
[2017-11-01 05:11] LABS: BASOPHILS % (AUTO) 0.3 % (0-1); EOSINOPHILS % (AUTO) 0 % (0-6); LYMPHOCYTES # (AUTO) 1.1 X10'3 (1.1-4.8); LYMPHOCYTES % (AUTO) 7.4 % (21-51); MEAN CORPUSCULAR HEMOGLOBIN 27.4 PG (27.0-31.0); MEAN CORPUSCULAR HGB CONC 32.2 % (33.0-36.5); MEAN CORPUSCULAR VOLUME 85.1 FL (78-98); MEAN PLATELET VOLUME 7.8 FL (7.4-10.4); MONOCYTES # (AUTO) 0.8 X10'3 (0-0.9); MONOCYTES % (AUTO) 5.5 % (2-12); NEUTROPHILS # (AUTO) 13.4 X10'3 (1.8-7.7); NEUTROPHILS % (AUTO) 86.8 % (42-75); PLATELET COUNT 316 X10'3 (140-440); RED BLOOD COUNT 3.64 X10'6 (4.70-6.10); RED CELL DISTRIBUTION WIDTH 18.5 % (11.5-14.5); WHITE BLOOD COUNT 15.5 X10'3 (4.5-11.0)
[2017-11-01 05:32] LABS: ALANINE AMINOTRANSFERASE 28 U/L (12-78); ALBUMIN 1.9 G/DL (3.4-5.0); ALBUMIN/GLOBULIN RATIO 0.4 (1.1-1.5); ALKALINE PHOSPHATASE 154 IU/L (46-116); ANION GAP 14 (8-16); ASPARTATE AMINO TRANSFERASE 25 U/L (10-37); BILIRUBIN,TOTAL 0.8 MG/DL (0.1-1.0); BLOOD UREA NITROGEN 15 MG/DL (7-18); BUN/CREATININE RATIO 13.4 (5.4-32.0); CALCIUM 8.2 MG/DL (8.5-10.1); CHLORIDE 109 MMOL/L (99-107); CREATININE 1.12 MG/DL (0.60-1.10); GLUCOSE 122 MG/DL (70-104); SODIUM 143 MMOL/L (135-145); TOTAL CARBON DIOXIDE 19.8 MMOL/L (24-32); TOTAL PROTEIN 6.5 G/DL (6.4-8.2); eGFR 63 ML/MIN
[2017-11-01 06:13] LABS: ANISOCYTOSIS 2+; PLATELET ESTIMATE NORMAL; TOTAL CELLS COUNTED 100; TOXIC GRANULATION 2+
[2017-11-01 06:14] LABS: ELLIPTOCYTES FEW
[2017-11-01] MEDS: lactobacillus rhamnosus 10,000 MMU CELLS/CAPSULE PO SCH ×3 (07:07→19:26)
[2017-11-01] MEDS: ferrous sulfate 325mg tablet PO SCH ×2 (07:07→07:40)
[2017-11-01] MEDS: duloxetine 30mg CAPSULE.DR PO SCH ×2 (07:07→07:40)
[2017-11-01] MEDS: K and/or MAG REPLACEMENT MC SCH (07:07)
[2017-11-01] MEDS: folic acid/vitamin B complex w/vitamin C 0.8mg tablet PO SCH ×2 (07:08→07:41)
[2017-11-01] MEDS: tamsulosin 0.4mg capsule PO SCH ×2 (07:08→07:40)
[2017-11-01] MEDS: [UNRECOGNIZED DRUG - REMARK] TP SCH (07:08)
[2017-11-01] MEDS: zinc sulfate 220mg capsule PO SCH ×2 (07:08→07:41)
[2017-11-01 07:24] VITALS: BP 180/110
[2017-11-01] MEDS: ipratropium/albuterol 3ml nebule NEB SCH ×5 (07:39→23:00)
[2017-11-01] MEDS ORDERED: metoprolol succinate 25mg (24-HOUR) SR. Tablet PO SCH (08:00)
[2017-11-01] MEDS: vancomycin inj 1,250 MG in normal saline 250ml IV soln 250 ML IV SCH (10:43)
[2017-11-01 12:18] VITALS: BP 165/93
[2017-11-01] MEDS: metoprolol succinate 25mg (24-HOUR) SR. Tablet PO SCH (19:26)
[2017-11-01 20:00] VITALS: BP 178/100
[2017-11-01] MEDS: atorvastatin 20mg tablet PO SCH (20:33)
[2017-11-01] MEDS: insulin glargine (Lantus) pen - multi-dose SQ SCH (20:33)
[2017-11-01 20:40] VITALS: BP 168/92
[2017-11-02] VITALS: BP 179/101
[2017-11-02] MEDS: piperacillin-tazo 2.25gm/50ml 50 ML IV SCH ×2 (02:22→07:48)
[2017-11-02 05:50] LABS: BASOPHILS % (AUTO) 0.1 % (0-1); EOSINOPHILS % (AUTO) 0 % (0-6); HEMATOCRIT 31.4 % (42.0-52.0); HEMOGLOBIN 10.4 g/dl (14.0-17.9); LYMPHOCYTES % (AUTO) 5.1 % (21-51); MEAN CORPUSCULAR HEMOGLOBIN 27.8 PG (27.0-31.0); MEAN CORPUSCULAR VOLUME 84.4 FL (78-98); MEAN PLATELET VOLUME 7.6 FL (7.4-10.4); MONOCYTES % (AUTO) 5.2 % (2-12); NEUTROPHILS # (AUTO) 17.9 X10'3 (1.8-7.7); NEUTROPHILS % (AUTO) 89.6 % (42-75); PLATELET COUNT 411 X10'3 (140-440); RED BLOOD COUNT 3.72 X10'6 (4.70-6.10); RED CELL DISTRIBUTION WIDTH 18.8 % (11.5-14.5)
[2017-11-02 06:16] LABS: ALANINE AMINOTRANSFERASE 30 U/L (12-78); ALBUMIN/GLOBULIN RATIO 0.4 (1.1-1.5); ALKALINE PHOSPHATASE 142 IU/L (46-116); ANION GAP 11 (8-16); ASPARTATE AMINO TRANSFERASE 18 U/L (10-37); BILIRUBIN,TOTAL 0.7 MG/DL (0.1-1.0); BLOOD UREA NITROGEN 16 MG/DL (7-18); CALCIUM 8.9 MG/DL (8.5-10.1); CHLORIDE 110 MMOL/L (99-107); CREATININE 1.23 MG/DL (0.60-1.10); GLUCOSE 154 MG/DL (70-104); POTASSIUM 4.3 MMOL/L (3.5-5.1); SODIUM 141 MMOL/L (135-145); TOTAL CARBON DIOXIDE 20.4 MMOL/L (24-32); TOTAL PROTEIN 6.7 G/DL (6.4-8.2); eGFR 56 ML/MIN
[2017-11-02 06:51] VITALS: BP 179/100
[2017-11-02] MEDS: ipratropium/albuterol 3ml nebule NEB SCH ×2 (07:03→10:57)
[2017-11-02 07:16] LABS: TOTAL CELLS COUNTED 100
[2017-11-02 07:17] LABS: ANISOCYTOSIS 2+; ELLIPTOCYTES FEW; PLATELET ESTIMATE NORMAL; TOXIC GRANULATION 1+
[2017-11-02] MEDS: tamsulosin 0.4mg capsule PO SCH ×2 (07:47→08:00)
[2017-11-02] MEDS: duloxetine 30mg CAPSULE.DR PO SCH (07:47)
[2017-11-02] MEDS: folic acid/vitamin B complex w/vitamin C 0.8mg tablet PO SCH ×2 (07:47→08:00)
[2017-11-02] MEDS: metoprolol succinate 25mg (24-HOUR) SR. Tablet PO SCH (07:47)
[2017-11-02] MEDS: zinc sulfate 220mg capsule PO SCH ×2 (07:47→08:00)
[2017-11-02] MEDS: lactobacillus rhamnosus 10,000 MMU CELLS/CAPSULE PO SCH (07:47)
[2017-11-02] MEDS: [UNRECOGNIZED DRUG - REMARK] TP SCH (07:48)
[2017-11-02] MEDS: K and/or MAG REPLACEMENT MC SCH (08:00)
[2017-11-02] MEDS: ferrous sulfate 325mg tablet PO SCH (08:00)
[2017-11-02] MEDS ORDERED: furosemide 40mg/4ml inj IV ONE (08:15)
[2017-11-02] MEDS ORDERED: furosemide 40mg/4ml inj ONE (08:15)
[2017-11-02] MEDS: vancomycin inj 1,250 MG in normal saline 250ml IV soln 250 ML IV SCH (10:10)
== END 2017-11-02 13:31 | disposition expired | DRG 871 ==
LOC: ER 03:26 → ED HOLD 07:05 → CANBEDREQ 07:39 → SUR 3N 08:52
PROVIDERS: ADMIT Emergency Medicine; ATTEND Family Medicine
PROC: 30233N1 Transfusion of Nonautologous Red Blood Cells into Peripheral Vein, Percutaneous Approach (ICD-10-PCS; principal; 2017-10-24)
PROC: CP1C1ZZ Planar Nuclear Medicine Imaging of Right Lower Extremity using Technetium 99m (Tc-99m) (ICD-10-PCS; 2017-11-01)
DX: A41.02 Sepsis due to Methicillin resistant Staphylococcus aureus (principal); L89.613 Pressure ulcer of right heel, stage 3; J69.0 Pneumonitis due to inhalation of food and vomit; E43 Unspecified severe protein-calorie malnutrition; J96.01 Acute respiratory failure with hypoxia; E87.1 Hypo-osmolality and hyponatremia; M86.171 Other acute osteomyelitis, right ankle and foot; N17.9 Acute kidney failure, unspecified; T83.420A Displacement of implanted penile prosthesis, initial encounter; L03.115 Cellulitis of right lower limb; N39.0 Urinary tract infection, site not specified; D70.9 Neutropenia, unspecified; Y83.8 Other surgical procedures as the cause of abnormal reaction of the patient, or of later complication, without mention of misadventure at the time of the procedure; R50.81 Fever presenting with conditions classified elsewhere; N18.3 Chronic kidney disease, stage 3 (moderate); D64.9 Anemia, unspecified; E11.42 Type 2 diabetes mellitus with diabetic polyneuropathy; I12.9 Hypertensive chronic kidney disease with stage 1 through stage 4 chronic kidney disease, or unspecified chronic kidney disease; E11.69 Type 2 diabetes mellitus with other specified complication; E87.6 Hypokalemia; E78.5 Hyperlipidemia, unspecified; E83.42 Hypomagnesemia; E83.51 Hypocalcemia; G30.9 Alzheimer's disease, unspecified; F02.80 Dementia in other diseases classified elsewhere, unspecified severity, without behavioral disturbance, psychotic disturbance, mood disturbance, and anxiety; I25.10 Atherosclerotic heart disease of native coronary artery without angina pectoris; N40.0 Benign prostatic hyperplasia without lower urinary tract symptoms; F32.9 Major depressive disorder, single episode, unspecified; T37.0X5A Adverse effect of sulfonamides, initial encounter; Z66 Do not resuscitate; I25.2 Old myocardial infarction; Z95.1 Presence of aortocoronary bypass graft; Z79.899 Other long term (current) drug therapy; Z79.82 Long term (current) use of aspirin; Z79.4 Long term (current) use of insulin; Y92.89 Other specified places as the place of occurrence of the external cause
CPT/HCPCS: 36415; 71045; 78315; 80053; 80202; 81001; 82948; 83605; 83735; 84132; 84145; 85025; 85610; 85651; 85730; 86140; 86644; 86885; 86900; 86901; 86920; 86945; 87040; 87070; 87075; 87076; 87077; 87088; 87185; 87186; 92616; 93005; 93306; 94640; 94760; 96365; 97110; 97116; 97162; 97530; 99285; A4649; A6196; A6212; A6213; A6250; A6255; A6258; A6446; A6449; A9503; J0692; J0696; J0744; J1442; J1815; J1940; J2543; J3370; J3475; J3480; J7030; P9016